=== PATIENT | female | born 1960 | race Caucasian/White ===

== ENCOUNTER 2024-07-07 16:29 | Outpatient (REF) | payer OTHER, SELFPAY ==
[2024-07-07 16:50] LABS: MANUAL DIFF FLAG NO
[2024-07-07 17:12] LABS: Basophils Percent Auto 0.4 % (0-2); Eosinophils Absolute Auto 0.2 X10*3/uL (0.0-0.4); Eosinophils Percent Auto 2.5 % (0-4); Hematocrit 35.9 % (37.0-47.0); Imm Gran Abs Auto 0.04 X10*3/uL (0.00-0.03); Imm Gran Pct Auto 0.6 % (0.0-0.4); Lymphocytes Absolute Auto 1.5 X10*3/uL (1.2-4.9); Lymphocytes Percent Auto 21.8 % (20-40); Mean Corpuscular HGB Conc 33.4 g/dl (31.0-35.0); Mean Corpuscular Hemoglobin 29.9 pg (27.0-33.0); Mean Corpuscular Volume 89.3 fL (80.0-98.0); Mean Platelet Volume 10.6 fL (9.4-12.3); Monocytes Absolute Auto 0.4 X10*3/uL (0.1-1.2); Monocytes Percent Auto 6.1 % (2-11); Neutrophils Absolute Auto 4.8 x10*3/uL (2.0-8.3); Neutrophils Percent Auto 68.6 % (45-73); Platelet Count 180 X10*3/uL (160-400); Red Blood Count 4.02 X10*6/uL (4.20-5.50); Red Cell Distribution Width 14.6 % (11.0-16.0); White Blood Count 6.9 X10*3/uL (4.8-10.8)
[2024-07-07 17:39] LABS: Alanine Aminotransferase 22 U/L (0-31); Albumin Level 4.1 g/dL (3.5-5.0); Alkaline Phosphatase 118 U/L (39-117); Anion Gap 16 (12-20); Aspartate Amino Transferase 24 U/L (5-31); Bilirubin Direct 0.1 mg/dL (0.0-0.5); Bilirubin Total 0.4 mg/dL (0.0-1.0); Blood Urea Nitrogen 21 mg/dL (9-16); Carbon Dioxide 24 mmol/L (22-29); Chloride 100 mmol/L (96-108); Estimated Glomerular Filt Rate 51; Glucose Random 85 mg/dL (60-115); Potassium 4.4 mmol/L (3.3-5.1); Sodium 136 mmol/L (135-145); Total Protein 6.9 g/dL (6.5-8.0)
[2024-07-07 18:17] LABS: TSH reflex Free T4 1.37 uIU/mL (0.32-4.0)
[2024-07-07 18:18] LABS: Folate 3.3 ng/mL (> or = 4.0); Vitamin B12 > 2000 pg/mL (200-900)
[2024-07-14 15:58] LABS: Vitamin B1 10 nmol/L (8-30)
== END 2024-07-07 16:30 | disposition home or self-care (01) ==
LOC: HO.LAB 16:29
PROVIDERS: PCP Internal Medicine; Visit Provider Psychiatry & Neurology Neurology
DX: G31.84 Mild cognitive impairment of uncertain or unknown etiology (principal)
CPT/HCPCS: 36415; 80053; 82248; 82607; 82746; 84425; 84443; 85025

== ENCOUNTER 2025-03-31 10:34 | Outpatient (REF) | payer OTHER, SELFPAY ==
[2025-03-31 12:00] LABS: MANUAL DIFF FLAG NO
[2025-03-31 12:10] LABS: Hematocrit 40.4 % (37.0-47.0); Hemoglobin 13.5 g/dl (12.0-16.0); Imm Gran Abs Auto 0.11 X10*3/uL (0.00-0.03); Imm Gran Pct Auto 1.4 % (0.0-0.4); Lymphocytes Absolute Auto 1.3 X10*3/uL (1.2-4.9); Mean Corpuscular HGB Conc 33.4 g/dl (31.0-35.0); Mean Corpuscular Hemoglobin 29.7 pg (27.0-33.0); Mean Corpuscular Volume 89.0 fL (80.0-98.0); NRBC Abs Auto 0.000 X10*3/uL (0.0-0.012); NRBC Pct Auto 0.0 /100WBC (0.0-0.2); Platelet Count 152 X10*3/uL (160-400); Red Blood Count 4.54 X10*6/uL (4.20-5.50); White Blood Count 7.9 X10*3/uL (4.8-10.8)
== END 2025-03-31 10:35 | disposition home or self-care (01) ==
LOC: HO.LAB 10:34
PROVIDERS: PCP Internal Medicine; Visit Provider Internal Medicine
DX: G47.33 Obstructive sleep apnea (adult) (pediatric) (principal); J45.909 Unspecified asthma, uncomplicated; E66.9 Obesity, unspecified; R05.9 Cough, unspecified; Z68.34 Body mass index [BMI] 34.0-34.9, adult; Z79.899 Other long term (current) drug therapy
CPT/HCPCS: 36415; 82785; 85025; 99202

== ENCOUNTER 2025-03-31 10:34 | Outpatient (AMB) | payer OTHER, SELFPAY ==
--- OUTSIDE RECORDS SUMMARY | 2025-01-24 07:30 | XMS_ITS ---
Author Organization [facility] Address [address] [place] [address] Care Team Providers Care Radiation / Chemistry Technician Name Role Phone David Mercado Primary Care Provider Kati Díaz [phone] Encounters Encounter Location Date Provider Diagnosis [address] [address] 01/24/2025 Kati Lawson Plan Of Treatment Next Appt Details Provider Name:Kati ramos, 06/13/2025 02:30:00 PM, [address] [place] [address], [phone], Progress Notes * Prisca PICKARDDOB: [birth year] (64 yo F)Acc No.[id number]:01/24/2025 Progress Note Patient: Prisca HUERTA Provider: González Lawson DPM :1960 A ge:64 Y S ex:Female Date:01/24/2025 Address:[address] [place], [place] [phone] Pcp:David Mercado Subjective: * Chief Complaints: * [...] 01/24/2025 Generated for Roslyn hannah/Marie/Chino on: 0 03/31/2025 11:42 AM EDT
[2025-03-31 11:06] VITALS: BP 102/82; PULSE 80; O2SAT 98; BMI 34.0
--- NOTE | 2025-03-31 11:06 | A.OFFVIS_ITS ---
Vital Signs 03/31/25 11:06 Height 5 ft 3 in Weight 191 lb 12.835 oz BMI 34.0 BP 102/82 Blood Pressure Location Lt brachial Position Sitting Pulse 80 Pulse Source Pulse Oximeter Pulse Oximetry (%) 98 Oxygen Delivery Method Room Air Intake Visit Reasons: Obstructive sleep apnea Intake Note: pt is here as a new patient for FAIZA/asthma. Last sleep study was about 8 years ago, she states she snores, asthma attack this am while taking a shower, but okay right now. Chief Environmental Commitment Officer Required: No Allergies Penicillins Allergy (Severe, Verified 03/31/25 12:59) Swelling Medication List - Last Reconciled 03/31/25 by Marilyn Drummond MD albuterol sulfate 90 mcg/actuation (Ventolin HFA) 1 inh inhalation QID fluticasone propionate 110 mcg/actuation 1 puff inhalation Q12H Do you need a note to return to daycare/school/sports/work: No HPI HPI Obstructive sleep apnea: Details: THIS 64 YEARS OLD FEMALE IS BEING SEEN FOR THE 1ST TIME FOR PULMONARY EVALUATION. AND MANAGEMENT SHE HAS VERY INTERESTING HISTORY DESCRIBED BELOW. SHE DOES HAVE HISTORY OF MILD BRONCHIAL ASTHMA FOR MANY YEARS, WHICH FLARES UP WITH SEASONAL ALLERGIES, OR ANY RESPIRATORY INFECTION, . BUT MOSTLY REMAINS UNDER CONTROL SHE HAS BEEN ON FLOVENT-1101 PUFF B.I.D., AND USES ALBUTEROL HFA ONLY ONCE IN A WHILE. SHE STATES THAT SHE IS HAVING MINOR EPISODES 2- 3 TIMES A DAY , AND SHE USES MOSTLY FLOVENT 1 PUFF TWICE A DAY, WHICH IS HELPING, SHE HAS HAD NO COMPLETE PULMONARY FUNCTION TESTING, OR ALLERGY TESTING. SHE ALSO HAS BEEN GROSSLY OBESE, HAS A ROUND FACE, AND WAS DIAGNOSED TO HAVE OBSTRUCTIVE SLEEP APNEA BACK IN 2016, WHEN SHE HAD A HOME-BASED STUDY THROUGH [facility]. SHE WAS PRESCRIBED CPAP WITH AUTO PAP MODE, BUT SHE DID NOT GO BACK FOR FOLLOW- UP. SHE STATES THAT SHE TRY TO USE THE CPAP ONLY FOR A LIMITED AMOUNT OF TIME, AND DID NOT TOLERATE THE MASK SO SHE GAVE UP. SUBSEQUENTLY IN 2018 SHE WAS ADMITTED TO THE SENIOR CARE, DUE TO SEVERE ENCEPHALOPATHY/DEMENTIA , AND SHE STAYED IN THE SENIOR CARE FOR 3 YEARS. SHE IS NOT SURE WHAT WAS THE REASON FOR THIS DEMENTIA, BUT SHE DOES STATE THAT SHE HAS HISTORY OF ALCOHOLISM IN THE PAST, WHICH SHE HAD STOPPED ALMOST 19 YEARS AGO. INTERESTINGLY WHEN SHE WAS STILL IN THE SENIOR CARE IN 2020 SHE HAD COVID INFECTION , AND ACCORDING TO HER STATEMENT AFTER THE COVID INFECTION HER MIND CLEARED UP. SHE BECAME VERY COHERENT ALERT AND ORIENTATED, AND STARTED AMBULATING. SHE WAS DEEMED FIT TO BE DISCHARGE FROM THE NURSING FACILITY. WHILE SHE WAS IN THE SENIOR CARE, HER HOME WAS TAKEN OVER BY THE BANK AND ALL HER STUFF INCLUDING THE CPAP MACHINE WERE GIVEN AWAY. AFTER DISCHARGE FROM THE SENIOR CARE SHE HAS BEEN LIVING IN AN ASSISTED LIVING FACILITY, WHICH SHE HAS BEEN STABLE AND DOING WELL. SHE STATES THAT SHE IS SLEEPING OKAY, AND SHE DOES NOT THINK THAT SHE NEEDS THE CPAP. IT SHOULD BE NOTED THAT WHEN SHE HAD SLEEP STUDY IN 2017 SHE WEIGHED 232 LBS, NOW HER WEIGHT BEING 191 LB SHE HAS LOST 41 LBs . THIS MAY HAVE DECREASE THE SEVERITY OF HER SLEEP APNEA. SHE HAS HISTORY OF SMOKING IN THE REMOTE PAST AND WAS ABLE TO QUIT SMOKING 30 YEARS AGO. MINIMAL INTERMITTENT COUGH AND MINIMAL SHORTNESS OF BREATH ON EXERTION SEEMS TO BE RELATED TO HER OBESITY AND MILD BRONCHIAL ASTHMA. [facility] Medical History (Updated 03/31/25 @ 15:20 by Marilyn Drummond MD) Obesity (BMI 30-39.9) FAIZA (obstructive sleep apnea) Cough Allergic asthma Asthma Social History Patient Tobacco Use Status: Former Tobacco user Review of Systems Const All systems reviewed & are unremarkable except as noted in HPI and below Eyes Reports no additional complaints ENT Reports no additional complaints and Reports nasal congestion (ONLY MILD INTERMITTENT NASAL CONGESTION) Card Denies chest pain, Denies syncope, Denies irregular heart rhythm and Denies leg edema Resp Reports as per HPI GI Reports no additional complaints Reports no additional complaints Musc Reports no additional complaints Skin/Breast Reports system reviewed and no additional complaints, except as documented Neuro Reports no additional complaints, Denies confusion, Denies syncope and Denies memory loss (SHE SPENT 3 YEARS IN THE SENIOR CARE BECAUSE OF SEVERE DEMENTIA) Psych Reports no additional complaints, Denies confusion and Denies memory loss (SHE SPENT 3 YEARS IN THE SENIOR CARE BECAUSE OF SEVERE DEMENTIA) Endo Reports no additional complaints Aller/Immun Reports no additional complaints Physical Exam Vital Signs: Last Vital Signs Pulse 80 03/31/25 11:06 BP 102/82 03/31/25 11:06 Pulse Ox 98 03/31/25 11:06 Oxygen Delivery Method Room Air 03/31/25 11:06 BMI result Body Mass Index 34.0 SHE IS MODERATELY OBESE, SHE DOES HAVE ROUND FACE, WEARS DENTURES. BUT THERE IS NO SIGNIFICANT WALTER DENTAL DEFORMITY . Const General: No confusion Orientation/consciousness: patient oriented x3 and No confusion HEENT Head: Yes normal to inspection General nose exam: No nasal polyps present and No nasal discharge present Face and sinus: Yes sinuses nontender Mouth: oropharynx normal (SLIGHTLY NARROW, MALLAMPATI CLASS 3) Throat: Yes posterior oropharynx normal Eyes General: appearance normal, both eyes and all related structures Neck Neck: Yes normal visual inspection, Yes no lymphadenopathy, Yes trachea midline and Yes no JVD Thyroid: Thyroid normal Chest Chest palpation & inspection: normal inspection of the chest, normal palpation of entire chest wall and no tenderness Resp Effort & Inspection: normal respiratory effort Auscultation: clear to auscultation bilaterally, no crackles, no rhonchi and no wheezes Cardio Palpation: normal PMI Rate: regular rate Rhythm: regular rhythm Heart sounds: no gallops and no murmurs Peripheral pulses: Peripheral pulses 2+ throughout GI Palpation (GI): Soft to palpation, Tenderness to palpation present (GI), No hepatosplenomegaly present and Palpable mass present Auscultation: normal bowel sounds Back/Spine/Pelvis Thoracic/Lumbar Spine: thoracic and lumbar spine normal to inspection Skin General skin exam: no rashes or lesions noted Neuro General: patient oriented x3, gait normal and No confusion Cranial nerves: Yes CN's II-XII intact bilaterally Extrem General: Yes normal to inspection, Yes no clubbing, cyanosis or edema and Yes no calf tenderness Psych Appearance: grossly normal and well kempt Speech and movement: Normal speech and movement present Results Reviewed Results Reviewed: HOME-BASED SLEEP STUDY BACK IN 2017 PERFORMED AT [facility], IS REVIEWED SHE DID HAVE MODERATELY SEVERE OBSTRUCTIVE SLEEP APNEA WITH TOTAL SLEEP TIME AHI 19.5. SHE WAS STARTED ON CPAP THERAPY WITH AUTO PAP MODE, BUT SHE REMAINED TOTALLY NON COMPLIANT. Assessment & Plan Assessment & Plan (1) FAIZA (obstructive sleep apnea): Comment: THIS PATIENT DOES HAVE HISTORY OF OBSTRUCTIVE SLEEP APNEA DIAGNOSED, BACK IN 2017. WAS PRESCRIBED CPAP THERAPY BUT SHE REMAINED TOTALLY NON COMPLIANT. SINCE THEN SHE HAS LOST SOME WEIGHT. AT PRESENT SHE DOES NOT PRESENT WITH SIGNIFICANT SYMPTOMS SUGGESTIVE OF SLEEP APNEA. Code(s): G47.33 - Obstructive sleep apnea (adult) (pediatric) Category: Medical Plan: WITH THIS INFORMATION THAT SHE WAS NONCOMPLIANT, AND ALSO WITH THE EVIDENCE THAT SHE HAS LOST SIGNIFICANT WEIGHT, AND PROBABLY WOULD HAVE ONLY MILD IF AT ALL, SLEEP APNEA. I DO NOT THINK THAT WE SHOULD REPEAT A SLEEP STUDY AT THIS TIME. THE PATIENT TOLD ME THAT EVEN IF SHE DOES HAVE SLEEP APNEA SHE IS NOT GOING TO USE THE CPAP. I RECOMMEND THAT SHE SHOULD CONTINUE TO LOSE SOME WEIGHT. TRY TO SLEEP IN LATERAL POSITION. (2) Obesity (BMI 30-39.9): Comment: PATIENT IS THE MODERATELY OBESE, SHE DOES HAVE A ROUND FACE. BUT THERE HAS BEEN EVIDENCE OF SOME WEIGHT LOSS COMPARED TO 2017 . Code(s): E66.9 - Obesity, unspecified Category: Medical Plan: DISCUSSED WITH THE PATIENT AND I RECOMMENDED TO HER THAT SHE NEEDS TO, CONTINUE LOSING WEIGHT (3) Allergic asthma: Comment: SHE HAS CHRONIC PERIODIC COUGH AND WHEEZING. I THINK SHE HAS CHRONIC ALLERGIC BRONCHIAL ASTHMA, DUE TO NONSPECIFIC MULTIPLE TRIGORS . Code(s): J45.909 - Unspecified asthma, uncomplicated Category: Medical Plan: CBC WITH DIFF, IGE LEVEL, ORDERED . ADVISED TO USE ALBUTEROL HFA 2 PUFFS Q 4-6 HOURS P.R.N. IF SHE HAS ANY SUSTAINED BOUT OF COUGH OR WHEEZING. ALSO CONTINUE FLUTICASONE PROPIONATE-110 1 PUFF B.I.D. PATIENT IS SCHEDULED TO HAVE COMPLETE PULMONARY FUNCTION TEST, AND AFTER THE TEST WILL DECIDE IF WE NEED TO MODIFY HER TREATMENT REGIMEN. (4) Cough: Comment: MILD INTERMITTENT COUGH IS PROBABLY ASTHMA VARIANT. Code(s): R05.9 - Cough, unspecified Category: Medical Plan: SEE UNDER BRONCHIAL ASTHMA CHEST X-RAY IS ORDERED TO RULE OUT ANY PARENCHYMAL DISEASE Orders: Orders Immunoglobulin E Today J45.909 - Unspecified asthma, uncomplicated Complete Blood Count Auto Diff Today J45.909 - Unspecified asthma, uncomplicated XR chest 2V Today J45.909 - Unspecified asthma, uncomplicated, R05.9 - Cough, unspecified PFT pulmonary function test Today E66.9 - Obesity, unspecified, J45.909 - Unspecified asthma, uncomplicated, R05.9 - Cough, unspecified Coding Level of Care Code New Pt Level 4 (92961) Diagnoses FAIZA (obstructive sleep apnea) G47.33 Obesity (BMI 30-39.9) E66.9 Allergic asthma J45.909 Cough R05.9
--- OUTSIDE RECORDS SUMMARY | 2025-03-31 11:42 | XMS_ITS | Encounter Summary ---
Author Organization [facility] Address [address] [place] [address] Care Team Providers Care Casino Slot Supervisor Name Role Phone David Mercado MD Primary Care Provider [phone] Reason for Visit * Reason Onset Date Comments Medication Problem 03/18/2025 Encounter Details Date Type Department Care Team (Late st Contact Info) Description 03/18/2025 Telephone Internal Medicine - [place] [address] [place] [phone] David Mercado MD 175 [facility] [address] [place] [address] Medication Problem Social History Tobacco Use Types Packs/Day Years Used Date Smoking Tobacco: Former Cigarettes Q uit: 08/18/1994 Smokeless Tobacco: Never Alcohol Use Standard Drinks/Week Comments Not Currently 0 (1 standard drink = 0.6 oz pur e alcohol) Comments No Sex and Gender Information Value Date Recorded Sex Assigned at Female 08/23/2024 7:27 AM EST Legal Sex Female 8:56 PM EST Gender Identity Female 08/23/2024 7:27 AM EST Sexual Orientation Straight 08/23/2024 7: 27 AM EST documented as of this encounter Progress Notes * Esperanza Alba - 03/30/2025 12:30 PM EDT Completed electronic pa - the medication did on the med list as of 03/27/2025. * Tatiaan Simmons - 03/28/2025 12:01 PM EDT Still waiting on medication and prior auth * Katherine Telles - 03/23/2025 11:54 AM EDT Maharaj from [facility] sent PA request over [employer] portal on 03/18/25: KeyCODE : [id number] [phone] EXT. 210 * Tatiana Simmons - 03/21/2025 10:33 AM EDT Mucienx needs a prior auth Tessalon also not covered by insurance Continue with cough persistent. OTC medication - no value to her . Unable to sleep -Heaviness in chest -- Continues with dyspnea even at rest Hydrating - Request is for ANETTE attention due to her Cough - and medications all need prior auth * Carrillo Serrano MA - 03/18/2025 3:39 PM EDT Informed pt Rx was sent over yesterday * Justin Pittman NP - 03/18/2025 3:17 PM EDT I sent Mucinex yesterday. Did the pharmacy notify her? * Carrillo Serrano MA - 03/18/2025 2:41 PM EDT Could you send over alternative for benzonatate cough med insurance doesn't cover it thank you * Katherine Elfego - 03/18/2025 2:26 PM EDT Pt needs an alternative for benzonatate cough med insurance doesn't cover, asked to send for high priority having a hard time with cough Please advise, ty documented in this encounter Plan of Treatment Upcoming Encounters Date Type Department Care Team (Late st Contact Info) Description 04/04/2025 9:00 AM EDT Office Visit Internal Medicine - [place] [address] [place] [phone] Justin Pittman NP 175 [facility] [address] [place] [address] 04/06/2025 2:00 PM EDT Office Visit Orthopedic Surgery - [place] [address] [facility] [address] [place] [phone] Italo Gordon MD 175 [facility] [address] [place] [address] 05/25/2025 9:10 AM EDT Office Visit Gastroenterology - [address] [place] [address] Enrique Yeh PA 299 [facility] [address] [place] [address] 07/26/2025 10:00 AM EST Office Visit Internal Medicine - [place] [address] [phone] David Mercado MD 175 [facility] [address] [place] [address] 12/27/2025 1:00 PM EDT [facility] [address] [facility] [place] [address] Adonis Ellison MD [address] [facility] [address] [place] [address] documented as of this encounter Goals Goal Patient Goal Type Associated Problems Recent Progress Patient-Stated? Author PT LTG - 4 visits General No Kaia [place] PT Note: Patient reports subjective decrease in right shoulder pain Patient is able to achieve 160 degrees of R shoulder flexion and abduction Slight trigger point to right upper trap and levator scap Slight flexibility restriction to bilateral upper trap Patient is independent and compliant with HEP documented as of this encounter Visit Diagnoses Not on filedocumented in this encounter Care Teams Casino Slot Supervisor Relationship Specialty Start Date End Date David Mercado MD 175 [facility] [address] [place] [address] PCP - General 05/21/23 documented as of this encounter
--- OUTSIDE RECORDS SUMMARY | 2025-03-31 11:42 | XMS_ITS ---
Author Name [facility] Organization Unknown History of Medication Use Medication Directions Dispensed Refills Start Date End Date Stat us acetaminophen (TYLENOL) 325 mg tablet Take 2 tablets (650 mg total) by mouth every 6 (six) hours if needed (postoperative pain). 08/23/2024 active levothyroxine (SYNTHROID, LEVOTHROID) 50 mcg tablet Take 1 tablet (50 mcg total) by mouth 1 (one) time each day before breakfast. Take 1 Tablet by mouth daily for 360 days. Take it in emty stomach in the morning , no medicine or food or drink within 30 min 07/08/2024 active risperiDONE (RisperDAL) 0.5 mg tablet Take 1 Tablet by mouth 2 times daily. 05/03/2024 active buPROPion (WELLBUTRIN) 100 mg tablet Take 1 Tablet by mouth 2 times daily. 03/09/2024 active aspirin 81 mg EC tablet Take 1 Tablet by mouth daily. active Allergies Allergen Reaction Severity Comment Documented Date Source Statu s PENICILLINS ANAPHYLAXIS 08/26/2023 [facility] ac tive Problems Problem Status Onset Date Problem Type Date of Resolution Source Abnormal EKG active 2024-07-02 ProblemAct [facility] Encounter for screening mammogram for breast cancer active EncounterDiagnosisAct C [facility] Gastroesophageal reflux disease active 2023-08-26 ProblemAct [facility] Bipolar 1 disorder active 2023-08-26 ProblemAct [facility] Vitamin D deficiency active 2023-09-14 ProblemAct [facility] Anxiety active 2023-08-26 ProblemAct [facility] Sleep apnea active 2024-08-23 ProblemAct [facility] Asthma active 2024-08-23 ProblemAct [facility] Depression active 2023-08-26 ProblemAct [facility] Hypotension active 2023-08-26 ProblemAct [facility] Vitamin B12 deficiency active 2023-09-14 ProblemAct [facility] Mixed hyperlipidemia active 2023-08-26 ProblemAct [facility] Obesity (BMI 30-39.9) active 2023-08-26 ProblemAct [facility] Allergic rhinitis due to pollen active 2023-08-26 ProblemAct [facility] Anemia active 2023-09-14 ProblemAct [facility] Hypomagnesemia active 2023-08-26 ProblemAct [facility]_ [facility] HTN (hypertension) active 2024-08-23 ProblemAct [facility] Pre-syncope active 2024-07-02 ProblemAct [facility] Stage 3a chronic kidney disease active 2023-11-05 ProblemAct [facility]
== END 2025-03-31 11:40 | disposition home or self-care (01) ==
LOC: HO.HPS 10:36
PROVIDERS: PCP Internal Medicine; Visit Provider Internal Medicine
DX: G47.33 Obstructive sleep apnea (adult) (pediatric) (principal); E66.9 Obesity, unspecified; J45.909 Unspecified asthma, uncomplicated; R05.9 Cough, unspecified
CPT/HCPCS: 99204

== ENCOUNTER 2025-04-05 09:31 | Outpatient (REF) | payer OTHER, SELFPAY ==
--- OUTSIDE RECORDS SUMMARY | 2025-01-24 07:30 | XMS_ITS ---
Author Organization [facility] Address [address] [place] [address] Care Team Providers Care Animal Care Taker Name Role Phone David Mercado Primary Care Provider Kati Díaz [phone] Encounters Encounter Location Date Provider Diagnosis [address] [address] 01/24/2025 Kati Lawson Plan Of Treatment Next Appt Details Provider Name:Kati ramos, 06/13/2025 02:30:00 PM, [address] [place] [address], [address], Progress Notes * Prisca PICKARDDOB: [birth year] (64 yo F)Acc No.[id number]:01/24/2025 Progress Note Patient: Prisca HUERTA Provider: González Lawson DPM :1960 A ge:64 Y S ex:Female Date:01/24/2025 Address:[address] [place], [place] [phone] Pcp:David Mercado Subjective: * Chief Complaints: * [...] DPM Date: 0 01/24/2025 Generated for Roslyn hannah/Marie/Chino on: 0 04/05/2025 10:36 AM EDT
--- NOTE | ~2025-04-05 | XR_ITS ---
EXAMINATION: XR CHEST CLINICAL INFORMATION: J45.909 - Unspecified asthma, uncomplicated COMPARISON: None available. TECHNIQUE: 2 views of the chest were obtained. FINDINGS: The cardiac, hilar, and mediastinal contours are normal. The lungs are clear bilaterally. There is no pneumothorax or pleural effusion. There is no focal osseous or soft tissue abnormality. There are cholecystectomy clips present. XR/XR chest 2V IMPRESSION: No active pulmonary disease. Electronically signed by: John Ozuna MD 04/05/2025 09:51 AM EDT
--- OUTSIDE RECORDS SUMMARY | 2025-04-05 10:36 | XMS_ITS | Encounter Summary ---
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 Phone David Mercado MD Primary Care Provider [phone] Reason for Visit * Reason Onset Date Comments Medication Problem 03/18/2025 Encounter Details Date Type Department Care Team (Late st Contact Info) Description 03/18/2025 Telephone Internal Medicine - [place] [facility] [address] [place] [id number] David Mercado MD 175 [facility] [address] [place] [address] Medication Problem Social History Tobacco Use Types [...] as of this encounter Progress Notes * Sangita Wylie MA - 04/02/2025 1:24 PM EDT DEXTROMETHOPHAN Is medication still an active medication ? * Tatiana Simmons - 03/31/2025 2:16 PM EDT If pharmacy request is this med discontinued? DEXTROMETHOPHAN is the name of medication Contact pharmacy with response * Espreanza Alba - 03/30/2025 12:30 PM EDT Completed electronic pa - the medication did on the med list as of 03/27/2025. * Tatiana Simmons - 03/28/2025 12:01 PM EDT Still waiting on medication and prior auth * Katherine Telles - 03/23/2025 11:54 AM EDT Maharaj from [facility] sent PA request over [employer] portal on 03/18/25: KeyCODE : [id number] [phone] EXT. 210 * Tatiana Simmons - 03/21/2025 [...] send over alternative for benzonatate cough med bc insurance doesn't cover it thank you * Katherine Telles - 03/18/2025 2:26 PM EDT Pt needs an alternative for benzonatate cough med bc insurance doesn't cover, asked to send for high priority having a hard time with cough Please advise, ty documented in this encounter Plan of Treatment Upcoming Encounters Date Type Department Care Team (Late st Contact Info) Description 04/06/2025 2:00 PM EDT Office Visit Orthopedic Surgery - [place] [address] [facility] [address] [place] [phone] Italo Gordon MD 175 [facility] [address] [place] [address] 05/25/2025 9:10 AM EDT Office Visit Gastroenterology - [address] [place] [phone] Enrique Yeh PA [address] [facility] [address] [place] [address] 07/26/2025 10:00 AM EST Office Visit Internal Medicine - [place] [address] [facility] [address] [place] [phone] David Mercado MD 175 [facility] [address] [place] [address] 12/27/2025 1:00 PM EDT Office Visit [place]phrology - [place] [address] [place] [phone] Adonis Ellison MD [address] [facility] [address] [place] [address] documented as of this encounter Goals Goal [...] on filedocumented in this encounter 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
== END 2025-04-05 09:32 | disposition home or self-care (01) ==
LOC: HO.XRAY 09:31
PROVIDERS: PCP Student in an Organized Health Care Education/Training Program; Visit Provider Internal Medicine
DX: J45.909 Unspecified asthma, uncomplicated (principal); R05.9 Cough, unspecified
CPT/HCPCS: 71046

== ENCOUNTER → 2025-04-05 09:36 | Outpatient (BNV) | payer OTHER, SELFPAY | PROVIDERS: PCP Student in an Organized Health Care Education/Training Program; Visit Provider Radiology Diagnostic Radiology | DX: J45.909 Unspecified asthma, uncomplicated (principal) | CPT/HCPCS: 71046 ==

== ENCOUNTER 2025-04-14 06:57 | Outpatient (REF) | payer OTHER, SELFPAY ==
--- OUTSIDE RECORDS SUMMARY | 2025-01-24 07:30 | XMS_ITS ---
Author Organization [facility] Address [address] [place] [address] Care Team Providers Care Car Inspector Name Role Phone David Mercado Primary Care Provider Kati Díaz [phone] Encounters Encounter Location Date Provider Diagnosis [address] [address] 01/24/2025 Kati Lawson Plan Of Treatment Next Appt Details Provider Name:Kati ramos, 06/13/2025 02:30:00 PM, [address] [place] [address], [phone], Progress Notes * Prisca PICKARDDOB: [birth year] (64 yo F)Acc No.[id number]:01/24/2025 Progress Note Patient: Prisca HUERTA Provider: González Lawson DPM :1960 A ge:64 Y S ex:Female Date:01/24/2025 Address:[address] [place], [place] [phone] Pcp:David Mercado Subjective: * Chief Complaints: * [...] 01/24/2025 Generated for Roslyn hannah/Marie/Chino on: 0 04/14/2025 06:59 AM EDT
--- OUTSIDE RECORDS SUMMARY | 2025-04-14 06:59 | XMS_ITS | Clinical Summary ---
Author Organization [facility] [address] [place] [address] Address [address], [place] Phone Care Team Providers Care Filler Shredding Machine Loader Name Role Phone David Mercado MD Primary Care Provider [phone] Allergies Active Allergy Reactions Criticality Noted Date Comments Penicillins Anaphylaxis High 08/26/2023 Medications levothyroxine (SYNTHROID, LEVOTHROID) 50 mcg tablet Take 1 tablet (50 mcg total) by mouth 1 (one) time each day before breakfast. Take 1 Tablet by mouth daily for 360 days. Take it in emty stomach in the morning , no medicine or food or drink within 30 min 90 each 3 09/28/19 25 026 Active FLUoxetine (PROzac) 10 mg capsule Take 1 capsule (10 mg total) by mouth 1 (one) time each day. Active diclofenac (VOLTAREN) 1 % topical gel Apply 2 g topically 4 (four) times a day if needed (pain). 100 g 3 02/02/20 25 025 Active pantoprazole (PROTONIX) 40 mg EC tablet Take 1 tablet (40 mg total) by mouth 1 (one) time each day. Do not crush, chew, or split. 90 each 1 02/08/20 25 025 Active atorvastatin (LIPITOR) 80 mg tablet Take 1 tablet (80 mg total) by mouth 1 (one) time each day. 60 tablet 1 02/22/20 25 026 Active lamoTRIgine (LaMICtal) 25 mg tablet Take 1 tablet (25 mg total) by mouth 1 (one) time each day. 90 each 1 02/22/20 25 026 Active midodrine (PROAMATINE) 5 mg tablet Take 1 tablet (5 mg total) by mouth 3 (three) times a day if needed (if BP <110/70). 120 tablet 1 02/22/20 25 026 Active albuterol HFA (PROAIR HFA ; PROVENTIL HFA ; VENTOLIN HFA) 90 mcg/actuation inhaler Inhale 2 puffs by mouth every 4 (four) hours if needed for wheezing. 6.7 g 3 03/08/20 25 Active benzonatate (TESSALON) 100 mg capsuleIndicatio ns:Cough, unspecified type Take 1 capsule (100 mg total) by mouth 3 (three) times a day if needed for cough. Do not crush or chew. 42 capsule 1 03/16/20 25 Active fluticasone HFA (FLOVENT HFA) 110 mcg/actuation inhalerIndicatio ns:Moderate persistent asthma, unspecified whether complicated,Bron chitis Inhale 1 puff by mouth 2 (two) times a day. Rinse mouth with water after use to reduce aftertaste and incidence of candidiasis. Do not swallow. 12 g 5 03/17/20 25 026 Active aspirin 81 mg chewable tablet CHEW ONE TABLET BY MOUTH ONCE DAILY. 30 tablet 04/07/20 25 Active celecoxib (CeleBREX) 200 mg capsule TAKE (1) CAPSULE BY MOUTH DAILY 30 capsule 04/07/20 25 Active buPROPion (WELLBUTRIN) 100 mg tablet TAKE 1 TABLET BY MOUTH TWICE DAILY 60 tablet 04/07/20 25 Active risperiDONE (RisperDAL) 0.5 mg tablet TAKE 1 TABLET BY MOUTH TWICE DAILY 60 tablet 04/07/20 25 Active aspirin 81 mg chewable tablet CHEW ONE TABLET BY MOUTH ONCE DAILY. 30 tablet 03/14/20 25 025 Discontinued celecoxib (CeleBREX) 200 mg capsule TAKE (1) CAPSULE BY MOUTH DAILY 30 capsule 03/14/20 25 025 Discontinued buPROPion (WELLBUTRIN) 100 mg tablet TAKE 1 TABLET BY MOUTH TWICE DAILY 60 tablet 03/14/20 25 025 Discontinued risperiDONE (RisperDAL) 0.5 mg tablet TAKE 1 TABLET BY MOUTH TWICE DAILY 60 tablet 03/14/20 25 025 Discontinued predniSONE (DELTASONE) 20 mg tabletIndication s:Bronchitis Take 3 tabs (60mg) daily for 3 days, then take 2 tabs (40mg) daily for 3 days, then take 1 tab (20mg) daily for 3 days. 18 tablet 03/16/20 25 025 budesonide-formo teroL (SYMBICORT) 160-4.5 mcg/actuation inhalerIndicatio ns:Mild intermittent asthma, unspecified whether complicated Inhale 2 puffs by mouth 2 (two) times a day. Rinse mouth with water after use to reduce aftertaste and incidence of candidiasis. Do not swallow. 1 each 03/16/20 25 025 Discontinued dextromethorphan -guaiFENesin (MUCINEX DM) 30-600 mg per 12 hr tabletIndication s:Moderate persistent asthma, unspecified whether complicated,Bron chitis,Acute cough Take 1 tablet by mouth every 12 (twelve) hours if needed for cough for up to 10 days. Do not crush, chew, or split. 20 tablet 03/17/20 25 025 Active Problems Problem Noted Date Diagnosed Date Dementia ([facility] V24, [facility] V28) 09/23/2024 Sciatica 09/23/2024 Asthma 08/23/2024 Sleep apnea 08/23/2024 Dysautonomia ([facility] V24, [facility] V28) 07/02/20 24 Assessment & Plan (09/29/2024 1:26 PM EST): Her symptoms are likely indicative of of an underlying dysautonomia, a common cause of syncope. Initially, it seemed as though the symptoms came out of the blue but with further questioning, she has had issues such as this for many years and in fact has been on midodrine for it. Furthermore, she also struggles with other autonomic issues including bladder issues for which she has a neurostimulator. I suspect memory loss is at play with some of this. EKG results are within normal limits. Currently on midodrine for low blood pressure. - Avoid squats and similar exercises that could potentially lead to falls - Maintain core and leg strength through alternative exercises that can be performed on the back-I suggested she speak with the teacher of the classes that she goes to at her assisted living who could make some recommendations - Continue high water intake - Order echocardiogram and carotid ultrasound and further workup - I have ordered a CBC to rule out anemia as a potential cause or contributor, TSH recently was normal - Use compression stockings to aid in blood return to the heart - Recommended she communicate with Dr. Gupta to discuss the case-she may have an underlying neurologic condition such as multisystem atrophy/Parkinson's-she does not have or complain of features of Parkinson's of note - Consider increasing midodrine dosage if symptoms persist Orders: Vascular US duplex carotid bilateral; Future Transthoracic echocardiogram (TTE) complete with PRN contrast, bubble, strain, and 3D order panel; Future CBC and differential; Future Assessment & Plan (09/29/2024 1:10 PM EST): Her symptoms are likely indicative of of an underlying dysautonomia, a common cause of syncope. Initially, it seemed as though the symptoms came out of the blue but with further questioning, she has had issues such as this for many years and in fact has been on midodrine for it. I suspect memory loss is at play with some of this. EKG results are within normal limits. Currently on midodrine for low blood pressure. - Avoid squats and similar exercises that could potentially lead to falls - Maintain core and leg strength through alternative exercises that can be performed on the back-I suggested she speak with the teacher of the classes that she goes to at her assisted living who could make some recommendations - Continue high water intake - Order echocardiogram and ultrasound of the neck - I have ordered a CBC to rule out anemia as a potential cause or contributor, TSH recently was normal - Use compression stockings to aid in blood return to the heart - Recommended she communicate with Dr. Gupta to discuss the case - Consider increasing midodrine dosage if symptoms persist Abnormal EKG 07/02/2024 Assessment & Plan (09/29/2024 1:26 PM EST): No major issues seen on today's EKG but obtaining baseline echocardiogram Orders: ECG 12 lead Stage 3a chronic kidney disease ([facility] V24, [facility] V28) 11/05/2023 Anemia 09/14/2023 Vitamin B12 deficiency 09/14/2023 Vitamin D deficiency 09/14/2023 Allergic rhinitis due to pollen 08/26/2023 Anxiety 08/26/2023 Bipolar 1 disorder ([facility] V24, [facility] V28) Depression 08/26/2023 Gastroesophageal reflux disease 08/26/2023 Hypomagnesemia 08/26/2023 Mixed hyperlipidemia 08/26/2023 Assessment & Plan (09/29/2024 1:26 PM EST): Continue current atorvastatin Obesity (BMI 30-39.9) 08/26/2023 Resolved Problems Problem Noted Date Diagnosed Date Resolved Date Paroxysmal atrial fibrillati on ([facility] V24, [facility] V28) 09/23/2024 09/29/2024 HTN (hypertension) 08/23/2024 Hypotension 08/26/2023 09/29/2024 Encounters Date Type Department Care Team Description 04/06/2025 2:00 PM EDT Office Visit Orthopedic Surgery - [place] [address] [facility] [address] [place] [phone] Italo Gordon MD Calcific tendinitis of right shoulder (Primary Dx) 03/18/2025 9:41 AM EDT - 03/18/2025 11:59 PM EDT Hospital Encounter Radiology Department [address] [phone] Encounter for screening mammogram for breast cancer Discharge Disposition: Home or Self Care 03/18/2025 Telephone Internal Medicine [facility] [address] [facility] [address] [place] [address] David Mercado MD 03/17/2025 Telephone Internal Medicine [facility] [address] [facility] [address] [place] [address] David Mercado MD 03/16/2025 9:30 AM EDT Office Visit Internal Medicine [address] [place] [phone] Justin Pittman NP Bronchitis (Primary Dx); Cough, unspecified type; Mild intermittent asthma, unspecified whether complicated; Bipolar 1 disorder ([facility] V24, [facility] V28) 01/25/2025 8:30 AM EDT Evaluation [facility] - [place] [address] [facility] [address] [place] [phone] Kaia Mesa PT Calcific tendinitis of right shoulder 01/19/2025 10:30 AM EDT Office Visit Internal Medicine - [place] [address] [facility] [address] [place] [phone] David Mercado MD Encounter for medication review (Primary Dx); Hypomagnesemia; Mixed hyperlipidemia; Vitamin B12 deficiency; Hypotension, unspecified hypotension type from Last 3 Months Surgical History Surgery Date Site/Laterality Comments KNEE SURGERY 2017 Right PROCEDURE: HISTORICAL KNEE SURGERY HIP ARTHROPLASTY 2019 Right PROCEDURE: HISTORICAL HIP REPLACEMENT OTHER SURGICAL HISTORY 2022 N/A PROCEDURE: REMOVAL OF NOSE/THROAT LESION; COMMENT: repartment of nose CHOLECYSTECTOMY 1982 N/A PROCEDURE: HISTORICAL CHOLECYSTECTOMY SECTION PROCEDURE: [place] DELIVERY ONLY OTHER SURGICAL HISTORY PROCEDURE: [place] LIG/TRNSXJ FLP TUBE ABDL/VAG APPR UNI/BI REVISION / REMOVAL NEUROSTIMULATOR Medical History Medical History Date Comments Hypotension 08/26/2023 DX:Hypotension Hypomagnesemia 08/26/2023 DX:Hypomagnesemi a Mixed hyperlipidemia 08/26/2023 DX:Mixed hy perlipidemia Obesity (BMI 30-39.9) 08/26/2023 DX:Obesity (BMI 30-39.9) Gastroesophageal reflux disease 08/26/2023 DX:Gastroesophageal reflux disease Bipolar 1 disorder ([facility] V24, [facility] V28) 08/26/2023 DX:Bipolar 1 disorder (HCC) Depression 08/26/2023 DX:Depression Anxiety 08/26/2023 DX:Anxiety Allergic rhinitis due to pollen 08/26/2023 DX:Allergic rhinitis due to pollen TIA (transient ischemic attack) DX:TIA (transient ischemic attack); COMMENT: Reports possible history of TIA when she was at shelter Kidney stones DX:Kidney stones Asthma Hypothyroidism Stroke ([facility] V24, [facility] V28) Family History Medical History Relation Name Comments Other: retinal problem Brother COPD Father Heart attack Mother Other: heart dis Mother Breast cancer Paternal Grandmother dx'd e rajeev 50s Glaucoma Sister Relation Name Status Comments Brother Father Maternal Grandfather Maternal Grandmother Mother Paternal Grandfather Paternal Grandmother Sister Social History Tobacco Use Types Packs/Day Years Used Date Smoking Tobacco: Former Cigarettes Q uit: 08/18/1994 Smokeless Tobacco: Never Tobacco Cessation:Counseling Given: Not Answered Alcohol Use Standard Drinks/Week Comments Not Currently 0 (1 standard drink = 0.6 oz pur e alcohol) Comments No Sex and Gender Information Value Date Recorded Sex Assigned at Female 08/23/2024 7:27 AM EST Legal Sex Female 8:56 PM EST Gender Identity Female 08/23/2024 7:27 AM EST Sexual Orientation Straight 08/23/2024 7: 27 AM EST Obstetrics History Para Term AB IAB SAB Ectopic Multiple Livin g Live Births 6 6 6 6 Date Outcome GA Total Labor Labor/2nd/3rd Weight Sex Type Anes PTL Jazmín A1 A5 Name Clin Term Term Term Term Term Term Last Filed Vital Signs Vital Sign Reading Time Taken Comments Blood Pressure 114/54 03/16/2025 9:16 AM EDT Pulse 110 03/16/2025 9:16 AM EDT Temperature 36.3 C (97.3 F) 03/16/2025 9:16 AM EDT Respiratory Rate 14 12/29/2024 10:39 AM EDT Oxygen Saturation 98% 03/16/2025 9:16 AM EDT Inhaled Oxygen Concentration - - Weight 81.6 kg (180 lb) 04/06/2025 2:01 PM EDT Height 160 cm (5' 3 ) 04/06/2025 2:01 PM EDT Body Mass Index 31.89 04/06/2025 2:01 PM EDT Plan of Treatment Upcoming Encounters Date Type Department Care Team (Late st Contact Info) Description 05/25/2025 9:10 AM EDT Office Visit Gastroenterology - [address] [facility] [address] [place] [phone] Enrique Yeh PA [address] [place] [phone] 07/26/2025 10:00 AM EST Office Visit Internal Medicine - [place] [address] [place] [phone] David Mercado MD [address] [place] [address] 12/27/2025 1:00 PM EDT [facility] [address] [place] [phone] Adonis Ellison MD [address] [place] [phone] Health Maintenance Due Date Last Done Comments Hepatitis A Vaccines (1 of 2 - Risk 2-dose series) 1979 Pneumococcal Vaccine: 50+ Years (1 of 2 - PCV) 1979 Zoster Vaccines (1 of 2) 1979 RSV Immunization Adult Patients (1 - Risk 60-74 years 1-dose series) 2020 Colorectal Cancer Screening: Colonoscopy 09/12/2023 HIV Screening 09/12/2023 Medicare Annual Wellness Visit 09/12/2023 Social Influencers of Health Screening 09/12/2023 COVID-19 Vaccine (2 - Moderna risk series) 06/14/2024 05/17/2024 Depression Screening 08/18/2024 Hypertension/CHF/CAD Annual BMP Blood Test 03/09/2025 03/09/2024, 03/09/2024 Influenza Vaccine (#1) 2025 , 06/18/2018, 05/23/2017, Additional history exists Breast Cancer Screening 03/18/2027 03/18/20, 03/10/2024, 03/10/2024 DTaP,Tdap,and Td Vaccines (3 - Td or Tdap) 10/13/2027 10/13/2017, 08/18/2007 Cervical Cancer Screening: HPV 11/05/2028 11/06/2023 Cholesterol Screening (Lipid Panel) 03/09/2029 03/09/2024, 03/09/2024 Osteoporosis Screening (Bone Density Screening) 09/22/2034 09/22/2024 Hepatitis C Screening Completed 09/11/2023 HIB Vaccines Aged Out No longer eligi ble based on patient's age to complete this topic HPV Vaccines Aged Out No longer eligi ble based on patient's age to complete this topic Hepatitis B Vaccines Aged Out No long er eligible based on patient's age to complete this topic IPV Vaccines Aged Out No longer eligi ble based on patient's age to complete this topic MMR Vaccines Aged Out No longer eligi ble based on patient's age to complete this topic Meningococcal ACWY Vaccine Aged Out N o longer eligible based on patient's age to complete this topic Meningococcal B Vaccine Aged Out No l onger eligible based on patient's age to complete this topic RSV Immunization Patients Under 20 months Aged Out No longer eligible based on patient's age to complete this topic Varicella Vaccines Aged Out No longer eligible based on patient's age to complete this topic Goals Goal Patient Goal Type Associated Problems [...] Patient is independent and compliant with HEP Medical Devices Implanted Type Area Chief Digital Media Officer Device Identifier Shelf Expiration Date Model / Serial / Lot Joints Hip Joints Hip Right: Hip Joints Knee Joints Knee Right: Knee Procedures Procedure Name Priority Date/Time Associated Diagnosis Comments EXTERNAL XRAY REPORT 04/05/2025 MG MAMMO DIGITAL SCREENING W NASH BILAT Routine 03/18/2025 10:11 AM EDT Encounter for screening mammogram for breast cancer BD BONE DENSITY DXA AXIAL SKELETON Routine 09/22/2024 2:24 PM EST Asymptomatic menopausal state ANNUAL BMP BLOOD TEST Routine 03/09/2024 LIPID PANEL Routine 03/09/2024 HPV Routine 11/06/2023 HEPATITIS C SCREENING Routine 09/11/2023 from Last 3 Months or Most Recently Relevant to Health Maintenance Results * External Xray Report (04/05/2025) Anatomical Region Laterality Modality Radiographic Verna ging us Provider [facility] IMG XR PROCEDURES Final Result * MG Mammo Digital Screening w Nash bilat (03/18/2025 10:11 AM EDT) Anatomical Region Laterality Modality Breast Bilateral Mammography 03/21/2025 4:50 PM EDT Impressions 03/21/2025 4:52 PM EDT No mammographic evidence of malignancy. BREAST DENSITY: B - There are scattered areas of fibroglandular density. BI-RADS CATEGORY: 1 - NEGATIVE RECOMMENDATION: Screening bilateral mammogram is recommended in 1 year. MAMMO LOCATION: [facility], [address] [place] [address], [id number], . -------- FINAL REPORT -------- Dictated By: Karen Barton Dictated Date: 03/21/2025 16:50 ET Assigned Physician: Karen Barton Reviewed and Electronically Signed By: Karen Barton Signed Date: 03/21/2025 16:52 ET Workstation ID: [id number] Transcribed By: Self Edit Transcribed Date: 03/21/2025 16:50 ET Narrative 03/21/2025 4:52 PM EDT EXAM: Screening Mammogram CLINICAL: 64 years old, Female, routine annual exam. COMPARISON: 03/10/2024 TECHNIQUE: Bilateral MLO and CC views were obtained digitally with 3-D mammogram (digital breast tomosynthesis). Computer-aided detection was utilized in evaluation of this exam (CAD). FINDINGS: No new suspicious mass, architectural distortion, or suspicious calcifications. Procedure Note Karen Barton MD - 03/21/2025 EXAM: Screening Mammogram CLINICAL: 64 years old, Female, routine annual exam. COMPARISON: 03/10/2024 TECHNIQUE: Bilateral MLO and CC views were obtained digitally with 3-Dmammogram (digital breast tomosynthesis). Computer-aided detection wasutilized in evaluation of this exam (CAD). FINDINGS: No new suspicious mass, architectural distortion, or suspiciouscalcifications. IMPRESSION: No mammographic evidence of malignancy. BREAST DENSITY: B - There are scattered areas of fibroglandular density. BI-RADS CATEGORY: 1 - NEGATIVE RECOMMENDATION: Screening bilateral mammogram is recommended in 1 year. MAMMO LOCATION: [facility], [address] [place] [address], [id number], . -------- FINAL REPORT -------- Dictated By: Karen Barton Dictated Date: 03/21/2025 16:50 ET Assigned Physician: Karen Barton Reviewed and Electronically Signed By: Karen Barton Signed Date: 03/21/2025 16:52 ET Workstation ID: [id number] Transcribed By: Self Edit Transcribed Date: 03/21/2025 16:50 ET David Mercado MD IMG BI PROCEDURES Final Result * BD Bone Density DXA Axial Skeleton (09/22/2024 2:24 PM EST) Anatomical Region Laterality Modality Wrist, Hip, L-spine Bone Densito metry 09/22/2024 2:26 PM EST Impressions 09/22/2024 2:28 PM EST Impression: This patient is considered to have normal bone density by WHO criteria. [facility] Department of Internal Medicine recommends using National Osteoporosis Foundation (NOF) guidelines in treatment decisions related to osteoporosis. NOF guidelines suggest considering treatment for postmenopausal women and men aged 50 or older presenting with the following: History of hip or vertebral fracture. T-score = -2.5 (DXA) at the femoral neck, total hip, or spine, after appropriate evaluation to exclude secondary causes. Low bone mass (T-score between -1.0 and -2.5 at the femoral neck or spine) AND a 10-year probability of a hip fracture = 3% OR a 10-year probability of a major osteoporosis-related fracture = 20% based on the [place]-adapted WHO algorithm Please note that all treatment decisions require clinical judgment and consideration of individual patient factors, including patient preferences, co-morbidities, previous drug use, risk factors not captured in the FRAX model (e.g., frailty, falls, vitamin D deficiency, increased bone turnover, interval significant decline in bone density) and possible under- or over-estimation of fracture risk by FRAX. Optional alternative screening schedule based on moira Chang., [facility] September 05, 2011 for patients with osteopenia (based on hip BMD T-score) is as follows: * advanced osteopenia (T scores -2.00 to -2.49), BMD testing every year * moderate osteopenia (T scores -1.50 to -1.99), BMD testing every 5 years mild osteopenia or normal BMD (T scores -1.50 and higher), BMD testing every 15 years -------- FINAL REPORT -------- Dictated By: Ina Belcher Dictated Date: 09/22/2024 14:26 ET Assigned Physician: Ina Belcher Reviewed and Electronically Signed By: Ina Belcher Signed Date: 09/22/2024 14:28 ET Workstation ID: [id number] Transcribed By: Self Edit Transcribed Date: 09/22/2024 14:26 ET Narrative 09/22/2024 2:28 PM EST BONE DENSITY (DEXA) Lumbar Spine T-score is 0.6. (SD relative to 20-29 y/o adult) Z-score is 2.3. (SD relative to age matched peers) This is considered normal by WHO criteria. Left Hip T-score is -0.6. Z-score is 0.9. This is considered normal by WHO criteria. There is mild curvature of the lumbar spine. Lateral view of the spine demonstrates vertebral heights to be maintained. Procedure Note Ina Belcher MD - 09/22/2024 BONE DENSITY (DEXA) Lumbar Spine T-score is 0.6. (SD relative to 20-29 y/o adult) Z-score is 2.3. (SD relative to age matched peers) This is considered normal by WHO criteria. Left Hip T-score is -0.6. Z-score is 0.9. This is considered normal by WHO criteria. There is mild curvature of the lumbar spine. Lateral view of the spine demonstrates vertebral heights to bemaintained. IMPRESSION: Impression: This patient is considered to have normal bone density by WHO criteria. [facility] Department of Internal Medicine recommendsusing National Osteoporosis Foundation (NOF) guidelines in treatmentdecisions related to osteoporosis. NOF guidelines suggest consideringtreatment for postmenopausal women and men aged 50 or older presentingwith the following: History of hip or vertebral fracture. T-score = -2.5 (DXA) at the femoral neck, total hip, or spine, afterappropriate evaluation to exclude secondary causes. Low bone mass (T-score between -1.0 and -2.5 at the femoral neck or spine)AND a 10-year probability of a hip fracture = 3% OR a 10-year probabilityof a major osteoporosis-related fracture = 20% based on the [place]-adapted WHOalgorithm Please note that all treatment decisions require clinical judgment andconsideration of individual patient factors, including patientpreferences, co-morbidities, previous drug use, risk factors not capturedin the FRAX model (e.g., frailty, falls, vitamin D deficiency, increasedbone turnover, interval significant decline in bone density) and possibleunder- or over-estimation of fracture risk by FRAX. Optional alternative screening schedule based on moira Chang., [facility]January 2011 for patients with osteopenia (based on hip BMD T-score)is as follows: * advanced osteopenia (T scores -2.00 to -2.49), BMD testing every year * moderate osteopenia (T scores -1.50 to -1.99), BMD testing every 5years mild osteopenia or normal BMD (T scores -1.50 and higher), BMD testingevery 15 years -------- FINAL REPORT -------- Dictated By: Ina Belcher Dictated Date: 09/22/2024 14:26 ET Assigned Physician: Ina Belcher Reviewed and Electronically Signed By: Ina Belcher Signed Date: 09/22/2024 14:28 ET Workstation ID: [id number] Transcribed By: Self Edit Transcribed Date: 09/22/2024 14:26 ET Abdulkadir ACEVEDO IMG DXA PROCEDURES Final Resul t * Annual BMP Blood Test (03/09/2024) [facility] Annual BMP Blood Test Abstracted Historical Provider HEALTH MAINTENANCE Final Result * Lipid panel (03/09/2024) [facility] LDL/HDL Ratio 3 0 - 4 Triglycerides 104 0 - 150 mg/dL Cholesterol 181 0 - 200 mg/dL HDL 61 >=40 mg/dL LDL Cholesterol 100 0 - 100 mg/dL Blood Venous blood specimen / Unknown Historical Provider LAB BLOOD ORDERABLES Liliya l Result * Cervical Cancer Screening: HPV (11/06/2023) [facility] Cervical Cancer Screening: HPV Negative, Abstracted Historical Provider HEALTH MAINTENANCE Final Result * Hepatitis C Screening (09/11/2023) [facility] Hepatitis C Screening Abstracted Historical Provider HEALTH MAINTENANCE Final Result from Last 3 Months or Most Recently Relevant to Health Maintenance Insurance MEDICARE Member Subscriber Plan / Payer (Ef fective 2019-Present) Name:KEREN PICKARDRICIA Relation to Subscriber:Self Name:Cuca Pickard Payer ID:[id number] Group ID:[id number] Type:Not on file Address: [place] [address] [place] [phone] Advance Directives * Full Code - Default (Latest Code Status on File) Date Activated Date Inactivated Comments 09/06/2024 1:36 PM 09/06/2024 4:54 PM This is orde r is used when code status has not been discussed with the patient, or code status is otherwise unknown/unconfirmed To update the patient's code status, place a code status order. Do not modify or discontinue any currently active code status orders. * Full Code - Default Date Activated Date Inactivated Comments 08/23/2024 7:49 AM 08/23/2024 1:03 PM This is order is used when code status has not been discussed with the patient, or code status is otherwise unknown/unconfirmed To update the patient's code status, place a code status order. Do not modify or discontinue any currently active code status orders. Care Teams Filler Shredding Machine Loader Relationship Specialty Start Date End Date David Mercado MD [address] [place] [phone] PCP - General 05/21/23
--- OUTSIDE RECORDS SUMMARY | 2025-04-14 06:59 | XMS_ITS | Encounter Summary ---
Author Organization Address [address] [place] [address] Care Team Providers Care Digestion Operator Name Role Phone David Mercado MD Primary Care Provider [phone] Reason for Visit * Reason Onset Date Comments Medication Problem 03/18/2025 Encounter Details Date Type Department Care Team (Late st Contact Info) Description 03/18/2025 Telephone Internal Medicine - [place] [address] [facility] [address] [place] [phone] David Mercado MD [address] [place] [address] Social History Tobacco Use Types Packs/Day Years [...] as of this encounter Progress Notes * Yumiko Aguero MA - 04/06/2025 3:16 PM EDT Spoke to patient and she stated she is buying over the counter medication, she's all set with meds. * David Mercado MD - 04/05/2025 5:19 PM EDT This is cough medication. Patient need as needed when patient have cough. It is not active currently. * Sangita Wylie MA - 04/02/2025 1:24 PM EDT DEXTROMETHOPHAN Is medication still an active medication ? * Tatiana Simmons - 03/31/2025 2:16 PM EDT If pharmacy request is this med discontinued? DEXTROMETHOPHAN is the name of medication Contact pharmacy with response * Esperanza Alba - 03/30/2025 12:30 PM EDT Completed electronic pa - the medication did on the med list as of 03/27/2025. * Tatiana Simmons - 03/28/2025 12:01 PM EDT Still waiting on medication and prior auth * Katherine Telles - 03/23/2025 11:54 AM EDT Maharaj from [facility] sent PA request over CoverMyMeds portal on 03/18/25: KeyCODE : [id number] [phone] EXT. 210 * Tatiana Simmons - [...] having a hard time with cough Please aakashetiffany documented in this encounter Plan of Treatment Upcoming Encounters Date Type Department Care Team (Late st Contact Info) Description 05/25/2025 9:10 AM EDT Office Visit Gastroenterology - [address] [facility] [address] [facility] [address] [place] [address] Enrique Yeh PA [address] [place] [phone] 07/26/2025 10:00 AM EST Office Visit Internal Medicine - [address] [place] [phone] David Mercado MD [address] [place] [address] 12/27/2025 1:00 PM EDT [facility] [address] [place] [phone] Adonis Ellison MD [address] [facility] [address] [place] [phone] documented as of this encounter Goals Goal [...] on filedocumented in this encounter Care Teams Digestion Operator Relationship Specialty Start Date End Date David Mercado MD [address] [facility] [address] [place] [phone] PCP - General 05/21/23 documented as of this encounter
--- OUTSIDE RECORDS SUMMARY | 2025-04-14 06:59 | XMS_ITS | Patient Health Record ---
Author Organization [facility] Address [address] [place] [address] Care Team Providers Care Flour Distributor Name Role Phone David Mercado Primary Care Provider Kati Díaz Unavailable [phone] Allergies Allergen (clinical drug ingredient) Drug/Non Drug Allergy documented on EMR Reaction Allergy Type Onset Date Status Penicillin mouth swelling Drug Allergy A ctive Reason For Referral No Information Medications Medication SIG (Take, Route, Frequency, Duration) Notes Start Date End Date Status Aspir-81 Not-Taking rOPINIRole HCl 0.25 MG 1 tablet 1 to 3 h ours before bedtime Orally Once a day Active Atorvastatin Calcium 40 MG 1 tablet Orally Once a day Not-Taking Melatonin 10 MG as directed Orally Not-Taking buPROPion HCl 100 MG 1 tablet Orally Twi ce a day Active Celecoxib 200 MG 1 capsule with food Orally Once a day Active Cetirizine HCl 10 MG 1 tablet Orally Onc e a day Active Fluoxetine Active lamoTRIgine 100 MG 1 tablet Orally Once a day Active Magnesium Oxide 400 MG 1 tablet as neede d Orally Once a day Not-Taking Midodrine HCl 5 MG 1 tablet Orally 3 ti mes a day Not-Taking Pantoprazole Sodium 40 MG 1 tablet Orall y Once a day Active risperiDONE 0.5 MG 1 tablet Orally Once a day Active Immunizations Vaccine Route Administration Date Status Comme nts Influenza Unknown 06/15/2024 Administered Social History Tobacco Use: Social History Observation Description Date Details (start date - stop date) Never Smoker NA - NA Tobacco use other than smoking: Question Answer Notes Are you an other tobacco user? No Tobacco Control (Standard) Question Answer Notes Tobacco use: Nonsmoker Additional Findings: Tobacco non-user Current no nsmoker AUDIT-C (Standard) Question Answer Notes Did you have a drink containing alcohol in the p ast year? No Points 0 Interpretation Negative Vital Signs Heart Rate 79 /min 10/25/2024 Blood pressure diastolic 79 mm Hg 03/14/2025 Height 5ft 3in in 03/14/2025 Blood pressure systolic 118 mm Hg 03/14/2025 Weight 160 lbs 03/14/2025 BMI 28.34 kg/m2 03/14/2025 Encounters Encounter Location Date Provider Diagnosis [address] [address] 06/21/2024 Kati Perica Tinea unguium B35.1 ; Pain in right toe(s) M79.674 and Pain in left toe(s) M79.[address] [address] 10/25/2024 Kati Perica Tinea unguium B35.1 ; Pain in right toe(s) M79.674 and Pain in left toe(s) M79.[address] [address] 03/14/2025 Kati Perica Tinea unguium B35.1 ; Pain in right toe(s) M79.674 and Pain in left toe(s) M79.[address] [address] 05/24/2024 Kati Perica [address] [address] 09/21/2024 [facility] [address] 01/20/2025 Kati Perica Assessments Encounter Date Diagnosis (ICD Code) Assessment Notes Treatment Notes Treatment Clinical Notes Section Notes 06/21/2024 Tinea unguium (ICD-10 - B35.1) 06/21/2024 Pain in right toe(s) (ICD-10 - M79.674) 10/25/2024 Tinea unguium (ICD-10 - B35.1) 10/25/2024 Pain in right toe(s) (ICD-10 - M79.674) 03/14/2025 Tinea unguium (ICD-10 - B35.1) 03/14/2025 Pain in right toe(s) (ICD-10 - M79.674) 10/25/2024 Pain in left toe(s) (ICD-10 - M79.675) 06/21/2024 Pain in left toe(s) (ICD-10 - M79.675) 03/14/2025 Pain in left toe(s) (ICD-10 - M79.675) Plan Of Treatment Next Appt Details Provider Name:Kati ramos, 06/13/2025 02:30:00 PM, [address] [place] [address], [place], [address], Insurance Providers Payer Name Payer Address Payer Phone Subscriber Number Group Number Insured Name Patient Relationship to Insured Coverage Start Date Coverage End Date [facility] CCA SCO Claims [address] [place] [facility] [id number] Prisca Cuevas Self - patient is the insured Medical (General) History Medical History History ICD Code Anemia Anxiety Arthritis asthma Back,Hip,and Knee pain Cataracts covid-19 Dementia Depression Diverticulosis Gall bladder problems Keloid/Thick Scar Psychiatric disorder Measles Mumps Chicken pox Joint implants/screws Surgical History Surgery Date(Month/Year) Gall bladder removal 1982 knee replacement 2017 hip replacement 2020 nerve stimulator surgery 01/2024 back sx stimulator 10/12 replanted stimulator in back
--- NOTE | 2025-04-14 07:37 | PFT_ITS ---
Flows: FEV1: 103 % of predicted at 2.37 L FVC: 94 % of predicted at 2.74 L FEV1/FVC: 87 % Bronchodilator response: Absent Volumes: Total lung capacity: 85 % of predicted at 4.16 L Residual volume: 84 % of predicted at 1.48 L Slow vital capacity: 86 % of predicted at 2.67 L Expiratory reserve volume: 30 % of predicted at 0.23 L Diffusion capacity: Mildly decreased Impression: No obstructive or restrictive ventilatory defect. No bronchodilator response. Decreased expiratory reserve volume suggests extrathoracic restriction likely secondary to abdominal obesity. Decreased diffusion capacity suggests emphysema. MTDD
[2025-04-14 08:10] VITALS: PULSE 63; O2SAT 98
== END 2025-04-14 06:58 | disposition home or self-care (01) ==
LOC: HO.RESP 06:57
PROVIDERS: PCP Internal Medicine; Visit Provider Internal Medicine
DX: J45.909 Unspecified asthma, uncomplicated (principal); R06.9 Unspecified abnormalities of breathing; E66.9 Obesity, unspecified
CPT/HCPCS: 94010; 94640; 94727; 94729

== ENCOUNTER → 2025-04-14 07:37 | Outpatient (BNV) | payer OTHER, SELFPAY | PROVIDERS: PCP Internal Medicine; Visit Provider Internal Medicine Pulmonary Disease | DX: J45.909 Unspecified asthma, uncomplicated (principal) | CPT/HCPCS: 94060; 94727; 94729 ==

== ENCOUNTER 2025-06-02 10:57 | Outpatient (AMB) | payer OTHER, SELFPAY ==
--- OUTSIDE RECORDS SUMMARY | 2024-05-24 06:00 | XMS_ITS ---
Author Organization [facility] Address [address] [place] [address] Care Team Providers Care Insurance Consultant Name Role Phone David Mercado Primary Care Provider Kati Díaz [phone] Encounters Encounter Location Date Provider Diagnosis [address] [address] 05/24/2024 Kati Lawson Plan Of Treatment Next Appt Details Provider Name:Kati ramos, 06/13/2025 02:30:00 PM, [address] [place] [address], [address], Progress Notes * Prisca PICKARDDOB: [birth year] (64 yo F)Acc No.[id number]:05/24/2024 Progress Note Patient: Prisca HUERTA Provider: González Lawson DPM :1960 A ge:63 Y S ex:Female Date:05/24/2024 Address:[address] [place], [place] [id number] Pcp:David Mercado Subjective: * Chief Complaints: * * Medical History: Objective: * Vitals: Assessment: Plan: * Treatment: * Images: * The named appointment provid er may or may not be the originator of this progress note, and it is not deemed complete until electronically signed by the appointment provider. Sign off status: Pending * Provider: González Lawson DPM Date: 1 Generated for Roslyn hannah/Marie/Chino on: 01:54 PM EDT
--- OUTSIDE RECORDS SUMMARY | 2024-09-23 06:00 | XMS_ITS ---
Author Organization [facility] Address [address] [place] [address] Care Team Providers Care Buffer Inflated Pad Name Role Phone David Mercado Primary Care Provider Kati Díaz [phone] Encounters Encounter Location Date Provider Diagnosis [address] [address] 09/23/2024 Kati Lawson Plan Of Treatment Next Appt Details Provider Name:Kati ramos, 06/13/2025 02:30:00 PM, [address] [place] [address], [phone], Progress Notes * Prisca PICKARDDOB: [birth year] (64 yo F)Acc No.[id number]:09/23/2024 Progress Note Patient: Prisca HUERTA Provider: González Lawson DPM :1960 A ge:64 Y S ex:Female Date:09/23/2024 Address:[address] [place], [place] [phone] Pcp:David Mercado Subjective: * Chief Complaints: * [...] DPM Date: 0 09/23/2024 Generated for Roslyn hannah/Marie/Chino on: 1 01:54 PM EDT
--- OUTSIDE RECORDS SUMMARY | 2025-01-24 07:30 | XMS_ITS ---
Author Organization [facility] Address [address] [place] [address] Care Team Providers Care Video Game Producer Name Role Phone David Mercado Primary Care Provider Kati Díaz [phone] Encounters Encounter Location Date Provider Diagnosis [address] [address] 01/24/2025 Kati Lawson Plan Of Treatment Next Appt Details Provider Name:Kati ramos, 06/13/2025 02:30:00 PM, [address] [place] [address], [phone], Progress Notes * Prisca PICKARDDOB: [birth year] (64 yo F)Acc No.[id number]:01/24/2025 Progress Note Patient: Prisca HUERTA Provider: González Lawson DPM :1960 A ge:64 Y S ex:Female Date:01/24/2025 Address:[address] [place], [place] [phone] Pcp:David Mercado Subjective: * Chief Complaints: * [...] 0 01/24/2025 Generated for Roslyn hannah/Marie/Chino on: 1 01:54 PM EDT
[2025-06-02 11:15] VITALS: BP 110/60; PULSE 63; O2SAT 98; BMI 36.1
--- NOTE | 2025-06-02 11:15 | A.OFFVIS_ITS ---
Vital Signs 06/02/25 11:15 Height 5 ft 3 in Weight 203 lb 14.841 oz BMI 36.1 BP 110/60 Blood Pressure Location Lt brachial Position Sitting Pulse 63 Pulse Source Pulse Oximeter Pulse Oximetry (%) 98 Oxygen Delivery Method Room Air Intake Visit Reasons: Obstructive sleep apnea Intake Note: pt is here for follow up and had pft and she just wants to get rid of the cough it has been 10 months. Forest Fire Lookout Required: No Banking Services Clerk: Banking Services Clerk offered & declined Allergies Penicillins Allergy (Severe, Verified 06/02/25 11:41) Swelling Medication List - Last Reconciled 06/02/25 by Marilyn Drummond MD albuterol sulfate 90 mcg/actuation (Ventolin HFA) 1 inh inhalation QID fluticasone propionate 110 mcg/actuation 1 puff inhalation Q12H Do you need a note to return to daycare/school/sports/work: No HPI HPI Obstructive sleep apnea: Details: This 64 years old female is here for follow-up after 2 months. Main complaint is ongoing periodic cough, for the last 8-10 months. Her cough is definitely worse if she is closer to somebody who is smoking, or if she is in the outdoor areas of her apartment building. Albuterol HFA does come down her cough. She is using Flovent-110 but only 1 puff twice a day. She can walk around without getting much shortness of breath. Her other problem has been obstructive sleep apnea, which almost resolved when she lost some weight. Now she is fighting with her weight. She claims that she is not having much symptoms of sleep apnea. And even if she does or read diagnosed with FAIZA she would not use CPAP. When she was here last time we did the lap tests . CBC with diff showed eosinophilia of 5.4% Immune globulin level was normal [facility] Medical History Obesity (BMI 30-39.9) FAIZA (obstructive sleep apnea) Cough Allergic asthma Asthma Social History Patient Tobacco Use Status: Former Tobacco user Review of Systems Const All systems reviewed & are unremarkable except as noted in HPI and below Eyes Reports no additional complaints ENT Reports no additional complaints and Reports nasal congestion (ONLY MILD INTERMITTENT NASAL CONGESTION) Card Denies chest pain, Denies syncope, Denies irregular heart rhythm and Denies leg edema Resp Reports as per HPI GI Reports no additional complaints Reports no additional complaints Musc Reports no additional complaints Skin/Breast Reports system reviewed and no additional complaints, except as documented Neuro Reports no additional complaints, Denies confusion, Denies syncope and Denies memory loss (SHE SPENT 3 YEARS IN THE HALF-WAY BECAUSE OF SEVERE DEMENTIA) Psych Reports no additional complaints, Denies confusion and Denies memory loss (SHE SPENT 3 YEARS IN THE HALF-WAY BECAUSE OF SEVERE DEMENTIA) Endo Reports no additional complaints Aller/Immun Reports no additional complaints Physical Exam Vital Signs: Last Vital Signs Pulse 63 06/02/25 11:15 BP 110/60 06/02/25 11:15 Pulse Ox 98 06/02/25 11:15 Oxygen Delivery Method Room Air 06/02/25 11:15 BMI result Body Mass Index 36.1 SHE IS MODERATELY OBESE, SHE DOES HAVE ROUND FACE, WEARS DENTURES. BUT THERE IS NO SIGNIFICANT WALTER DENTAL DEFORMITY . Const General: No confusion Orientation/consciousness: No confusion HEENT Head: Yes normal to inspection General nose exam: No nasal polyps present and No nasal discharge present Face and sinus: Yes sinuses nontender Mouth: oropharynx normal (SLIGHTLY NARROW, MALLAMPATI CLASS 3) Throat: Yes posterior oropharynx normal Eyes General: appearance normal, both eyes and all related structures Neck Neck: Yes normal visual inspection, Yes no lymphadenopathy, Yes trachea midline and Yes no JVD Thyroid: Thyroid normal Chest Chest palpation & inspection: normal inspection of the chest, normal palpation of entire chest wall and no tenderness Resp Effort & Inspection: normal respiratory effort Auscultation: clear to auscultation bilaterally, no crackles, no rhonchi and no wheezes Cardio Palpation: normal PMI Rate: regular rate Rhythm: regular rhythm Heart sounds: no gallops and no murmurs Peripheral pulses: Peripheral pulses 2+ throughout GI Palpation (GI): Soft to palpation, Tenderness to palpation present (GI), No hepatosplenomegaly present and Palpable mass present Auscultation: normal bowel sounds Back/Spine/Pelvis Thoracic/Lumbar Spine: thoracic and lumbar spine normal to inspection Skin General skin exam: no rashes or lesions noted Neuro General: No confusion Cranial nerves: Yes CN's II-XII intact bilaterally Extrem General: Yes normal to inspection, Yes no clubbing, cyanosis or edema and Yes no calf tenderness Psych Appearance: grossly normal and well kempt Speech and movement: Normal speech and movement present Results Reviewed Results Reviewed: Chest x-ray unremarkable Pulmonary function test normal except for mild decrease in diffusion capacity CBC,, eosinophil count 5.4% slightly elevated. Immune globulin level 14, normal Assessment & Plan Assessment & Plan (1) Allergic asthma: Comment: SHE HAS CHRONIC PERIODIC COUGH AND WHEEZING. I THINK SHE HAS CHRONIC ALLERGIC BRONCHIAL ASTHMA, DUE TO NONSPECIFIC ENVIRONMENTAL ALLERGIES , ESPECIALLY TO DUST. MILD EOSINOPHILIA OF 5.4%, Code(s): J45.909 - Unspecified asthma, uncomplicated Category: Medical Plan: EXPLAINED TO THE PATIENT THAT HER COUGH IS PROBABLY DUE TO MILD ALLERGIC BRONCHIAL ASTHMA. SHE MAY USE ALBUTEROL HFA 1 OR 2 PUFFS Q 6 HOURS P.R.N. WHEN SHE HAS A PERSISTENT BOUT OF COUGH ALSO CONTINUE TO USE FLOVENT-1101 INHALATION B.I.D.. (2) Cough: Comment: MILD INTERMITTENT COUGH IS PROBABLY ASTHMA VARIANT. Code(s): R05.9 - Cough, unspecified Category: Medical Plan: UNDER ASTHMA (3) FAIZA (obstructive sleep apnea): Comment: THIS PATIENT DOES HAVE HISTORY OF OBSTRUCTIVE SLEEP APNEA DIAGNOSED, BACK IN 2017. WAS PRESCRIBED CPAP THERAPY BUT SHE REMAINED TOTALLY NON COMPLIANT. SINCE THEN SHE HAS LOST SOME WEIGHT. AT PRESENT SHE DOES NOT PRESENT WITH SIGNIFICANT SYMPTOMS SUGGESTIVE OF SLEEP APNEA. SINCE LAST VISIT SHE HAS GAINED SOME WEIGHT. Code(s): G47.33 - Obstructive sleep apnea (adult) (pediatric) Category: Medical Plan: HAD A DETAILED TALK AND I STRESSED THAT SHE HAS TO LOSE WEIGHT . SHE SAY IS CURRENTLY SHE IS ON A SPECIAL DIET AND HAS EVERY INTENTION TO LOSE SIGNIFICANT WEIGHT. SHE WOULD DEFINITELY NOT LIKE TO HEAR ABOUT USING CPAP. Coding Level of Care Code Est Pt Level 3 (46817) Diagnoses Allergic asthma J45.909 Cough R05.9 FAIZA (obstructive sleep apnea) G47.33
--- OUTSIDE RECORDS SUMMARY | 2025-06-02 13:54 | XMS_ITS | Patient Health Record ---
Author Organization [facility] Address [address] [place] [address] Care Team Providers Care Surgical Corsetier Name Role Phone David Mercado Primary Care Provider Kati Díaz Unavailable [phone] Allergies Allergen (clinical drug ingredient) Drug/Non Drug [...] 03/14/2025 Encounters Encounter Location Date Provider Diagnosis [address] [address] 06/21/2024 Kati Perica Tinea unguium B35.1 ; Pain in right toe(s) M79.674 and Pain in left toe(s) M79.[address] [address] 10/25/2024 Kati Perica Tinea unguium B35.1 ; Pain in right toe(s) M79.674 and Pain in left toe(s) M79.[address] [address] 03/14/2025 Akti Perica Tinea unguium B35.1 ; Pain in right toe(s) M79.674 and Pain in left toe(s) M79.[address] [address] 09/21/2024 Kati Pericrachel [address] [address] 01/20/2025 Kati Lawson Assessments Encounter Date Diagnosis (ICD Code) Assessment [...] Details Provider Name:Kati ramos, 06/13/2025 02:30:00 PM, [address] [facility], [place], [address], Insurance Providers Payer Name Payer Address Payer Phone Subscriber Number Group Number Insured Name Patient Relationship to Insured Coverage Start Date Coverage End Date [facility] [employer] S[employer] Claims [address] [place] [id number] Prisca Cuevas Self - patient is the [...]
--- OUTSIDE RECORDS SUMMARY | 2025-06-02 13:54 | XMS_ITS | Encounter Summary ---
Author Organization [facility] Address [address] [place] [address] Care Team Providers Care Filter Changing Technician Name Role Phone David Mercado MD Primary Care Provider [phone] Reason for Visit * Reason Onset Date Comments Prior Authorization 05/13/2025 Encounter Details Date Type Department Care Team (Late st Contact Info) Description 05/13/2025 Telephone Internal Medicine - [place] [address] [facility] [address] [place] [phone] David Mercado MD 175 [facility] [address] [place] [phone] Social History Tobacco Use Types Packs/Day Years [...] as of this encounter Progress Notes * Chanda Wylie MA - 05/24/2025 10:41 AM EDT CURTIS for Zepbound approved from 02/22/2025-05/24/2026 * Chanda Wylie MA - 05/24/2025 8:53 AM EDT COLLEEN ACEVEDO request with [employer] BY PHONE clinicals notes faxed to DX OBESITY , FAIZA * Gisslele Vigil - 05/23/2025 2:02 PM EDT Pharmacy asked for status of P.A. for Zepbound. Informed her of message below as of 05/17/25 it was pending but unsure if the status has changed. Please fax response to pharmacy if approve or denied. Please advise. * Savannah Escobar MA - 05/17/2025 12:09 PM EDT Prior authorization is pending. Waiting for Payer Response 05/17/2025 10:31 AM Deadline to reply: May 21, * Tatiana Simmons - 05/13/2025 12:09 PM EDT Prior auth needed for Zepbound MARTINEZ [id number] documented in this encounter Plan of Treatment Upcoming Encounters Date Type Department Care Team (Late st Contact Info) Description 07/26/2025 10:00 AM EST Office Visit Internal Medicine - [address] [phone] David Mercado MD [address] [phone] 12/27/2025 1:00 PM EDT Office Visit Nephrology - [facility] [address] [place] [phone] Adonis Ellison MD [address] [place] [address] documented as of this encounter Goals Goal [...] on filedocumented in this encounter Care Teams Filter Changing Technician Relationship Specialty Start Date End Date David Mercado MD [address] [place] [address] [address] [place] [address] PCP - General 05/21/23 documented as of this encounter
--- OUTSIDE RECORDS SUMMARY | 2025-06-02 13:55 | XMS_ITS | Clinical Summary ---
Author Organization [facility] [address] [place] [address] Address [address], [place] Phone Care Team Providers Care Telephone Sex Worker Name Role Phone David Mercado MD Primary Care Provider [phone] Allergies Active Allergy Reactions Criticality Noted Date [...] drink within 30 min 90 each 3 5 09/28/19 26 Active FLUoxetine (PROzac) 10 mg capsule Take 1 capsule (10 mg total) by mouth 1 (one) time each day. Active diclofenac (VOLTAREN) 1 % topical gel Apply 2 g topically 4 (four) times a day if needed (pain). 100 g 3 5 07/31/20 25 Active pantoprazole (PROTONIX) 40 mg EC tablet Take 1 tablet (40 mg total) by mouth 1 (one) time each day. Do not crush, chew, or split. 90 each 1 5 08/06/20 25 Active lamoTRIgine (LaMICtal) 25 mg tablet Take 1 tablet (25 mg total) by mouth 1 (one) time each day. 90 each 1 5 08/20/19 26 Active midodrine (PROAMATINE) 5 mg tablet Take 1 tablet (5 mg total) by mouth 3 (three) times a day if needed (if BP <110/70). 120 tablet 1 5 08/20/19 26 Active albuterol HFA (PROAIR HFA ; PROVENTIL HFA ; VENTOLIN HFA) 90 mcg/actuation inhaler Inhale 2 puffs by mouth every 4 (four) hours if needed for wheezing. 6.7 g 3 5 Active benzonatate (TESSALON) 100 mg capsuleIndicatio ns:Cough, unspecified type Take 1 capsule (100 mg total) by mouth 3 (three) times a day if needed for cough. Do not crush or chew. 42 capsule 1 5 Active fluticasone HFA (FLOVENT HFA) 110 mcg/actuation inhalerIndicatio ns:Moderate persistent asthma, unspecified whether complicated,Bron chitis Inhale 1 puff by mouth 2 (two) times a day. Rinse mouth with water after use to reduce aftertaste and incidence of candidiasis. Do not swallow. 12 g 5 5 03/17/20 26 Active buPROPion (WELLBUTRIN) 100 mg tablet TAKE 1 TABLET BY MOUTH TWICE DAILY 60 tablet 5 Active risperiDONE (RisperDAL) 0.5 mg tablet TAKE 1 TABLET BY MOUTH TWICE DAILY 60 tablet 5 Active atorvastatin (LIPITOR) 80 mg tablet TAKE 1 TABLET BY MOUTH ONCE DAILY 30 tablet 5 Active aspirin 81 mg chewable tablet CHEW ONE TABLET BY MOUTH ONCE DAILY. 30 tablet 5 Active celecoxib (CeleBREX) 200 mg capsule TAKE (1) CAPSULE BY MOUTH DAILY 30 capsule 5 Active tirzepatide, weight loss, (Zepbound) 2.5 mg/0.5 mL injection Inject 0.5 mL (2.5 mg total) under the skin every 7 (seven) days. 2 mL 5 5 11/07/19 26 Active Active Problems Problem Noted Date Diagnosed Date Dementia ([facility] V24, [facility] V28) 09/23/2024 Sciatica 09/23/2024 Asthma 08/23/2024 Sleep apnea 08/23/2024 Dysautonomia ([facility] V24, [facility] V28) 07/02/20 Assessment & Plan (09/29/2024 1:26 PM EST): [...] 12 lead Stage 3a chronic kidney disease ([facility] V24, [facility] V28) 11/05/2023 Anemia 09/14/2023 Vitamin B12 deficiency 09/14/2023 Vitamin D deficiency 09/14/2023 Allergic rhinitis due to pollen 08/26/2023 Anxiety 08/26/2023 Bipolar 1 disorder ([facility] V24, [facility] V28) Depression 08/26/2023 Gastroesophageal reflux disease 08/26/2023 Hypomagnesemia 08/26/2023 Mixed hyperlipidemia 08/26/2023 Assessment & Plan (09/29/2024 1:26 PM EST): Continue current atorvastatin Obesity (BMI 30-39.9) 08/26/2023 Resolved Problems Problem Noted Date Diagnosed Date Resolved Date Paroxysmal atrial fibrillati on ([facility] V24, [facility] V28) 09/23/2024 09/29/2024 HTN (hypertension) 08/23/2024 Hypotension 08/26/2023 09/29/2024 Encounters Date Type Department Care Team Description 05/13/2025 Telephone Internal Medicine [address] [address] David Mercado MD 05/10/2025 10:30 AM EDT Office Visit Internal Medicine [address] [address] David Mercado MD Obesity (BMI 30-39.9) (Primary Dx); Osteoarthritis of left hip, unspecified osteoarthritis type; Mild intermittent asthma, unspecified whether complicated 04/06/2025 2:00 PM EDT Office Visit Orthopedic Surgery [facility] [address] [facility] [address] [place] [phone] Italo Gordon MD Calcific tendinitis of right shoulder (Primary Dx) 03/18/2025 9:41 AM EDT - 03/18/2025 11:59 PM EDT Hospital Encounter Radiology Department - [address] [address] Encounter for screening mammogram for breast cancer Discharge Disposition: Home or Self Care 03/18/2025 Telephone Internal Medicine [facility] [address] [facility] [address] [place] [address] David Mercado MD 03/17/2025 Telephone Internal Medicine [facility] [address] [facility] [address] [place] [address] David Mercado MD 03/16/2025 9:30 AM EDT Office Visit Internal Medicine [address] [place] [address] Justin Pittman NP Bronchitis (Primary Dx); Cough, unspecified type; Mild intermittent asthma, unspecified whether complicated; Bipolar 1 disorder ([facility] V24, [facility] V28) from Last 3 Months Surgical History Surgery Date Site/Laterality Comments KNEE SURGERY 2017 Right PROCEDURE: HISTORICAL KNEE SURGERY HIP ARTHROPLASTY 2019 Right PROCEDURE: HISTORICAL HIP REPLACEMENT OTHER SURGICAL HISTORY 2022 N/A PROCEDURE: REMOVAL OF NOSE/THROAT LESION; COMMENT: repartment of nose CHOLECYSTECTOMY 1982 N/A PROCEDURE: HISTORICAL CHOLECYSTECTOMY SECTION PROCEDURE: [place] DELIVERY ONLY OTHER SURGICAL HISTORY PROCEDURE: [place] LIG/TRNSXJ FLP TUBE ABDL/VAG APPR UNI/BI REVISION / REMOVAL NEUROSTIMULATOR Medical History Medical History Date Comments Hypotension 08/26/2023 DX:Hypotension Hypomagnesemia 08/26/2023 DX:Hypomagnesemi a Mixed hyperlipidemia 08/26/2023 DX:Mixed hy perlipidemia Obesity (BMI 30-39.9) 08/26/2023 DX:Obesity (BMI 30-39.9) Gastroesophageal reflux disease 08/26/2023 DX:Gastroesophageal reflux disease Bipolar 1 disorder ([facility] V24, [facility] V28) 08/26/2023 DX:Bipolar 1 disorder ([facility]) Depression 08/26/2023 DX:Depression Anxiety 08/26/2023 DX:Anxiety Allergic rhinitis due to pollen 08/26/2023 DX:Allergic rhinitis due to pollen TIA (transient ischemic attack) DX:TIA (transient ischemic attack); COMMENT: Reports possible history of TIA when she was at group home Kidney stones DX:Kidney stones Asthma Hypothyroidism Stroke ([facility] V24, [facility] V28) Family History Medical History Relation Name [...] Sign Reading Time Taken Comments Blood Pressure 130/88 05/10/2025 10:20 AM EDT Pulse 99 05/10/2025 10:20 AM EDT Temperature 35.9 C (96.6 F) 05/10/2025 10:20 AM EDT Respiratory Rate 14 12/29/2024 10:39 AM EDT Oxygen Saturation 98% 05/10/2025 10:20 AM EDT Inhaled Oxygen Concentration - - Weight 88.9 kg (196 lb) 05/10/2025 10:20 AM EDT Height 160 cm (5' 3 ) 05/10/2025 10:20 AM EDT Body Mass Index 34.72 05/10/2025 10:20 AM EDT Plan of Treatment Upcoming Encounters Date Type Department Care Team (Late st Contact Info) Description 07/26/2025 10:00 AM EST Office Visit Internal Medicine - [place] [address] [facility] [address] [place] [address] David Mercado MD [address] [facility] [address] [place] [address] 12/27/2025 1:00 PM EDT Office Visit Nephrology - [facility] [address] [facility] [place] [phone] Adonis Ellison MD [address] [place] [address] [place] [phone] Health Maintenance Due Date Last Done Comments Colorectal Cancer Screening: Colonoscopy 1960 Hepatitis A Vaccines (1 of 2 - Risk 2-dose series) 1979 Pneumococcal Vaccine: 50+ Years (1 of 2 - PCV) 1979 Zoster Vaccines (1 of 2) 1979 RSV Immunization Adult Patients (1 - Risk 50-74 years 1-dose series) 2010 HIV Screening 09/12/2023 Medicare Annual Wellness Visit 09/12/2023 Social Influencers of Health Screening 09/12/2023 COVID-19 Vaccine (2 - Moderna risk series) 06/14/2024 05/17/2024 Depression Screening 08/18/2024 Influenza Vaccine (#1) 2025 , 06/18/2018, 05/23/2017, Additional history exists Breast Cancer Screening 03/18/2027 03/18/20 25, 03/10/2024, 03/10/2024 DTaP,Tdap,and Td Vaccines (3 - [...] with HEP Medical Devices Implanted Type Area Board Winder Device Identifier Shelf Expiration Date Model / [...] 09/22/2024 2:24 PM EST Asymptomatic menopausal state LIPID PANEL Routine 03/09/2024 HM HPV Routine 11/06/2023 HEPATITIS C SCREENING Routine [...] is recommended in 1 year. MAMMO LOCATION: [facility], [address] [place] [address], [id number], . -------- FINAL REPORT -------- Dictated By: Karen Barton Dictated Date: 03/21/2025 16:50 ET Assigned Physician: Karen Barton Reviewed and Electronically Signed By: Karen Barton Signed Date: 03/21/2025 16:52 ET Workstation ID: [id number] Transcribed By: Self Edit Transcribed Date: 03/21/2025 [...] architectural distortion, or suspicious calcifications. Procedure Note aKren Barton MD - 03/21/2025 EXAM: Screening Mammogram [...] is recommended in 1 year. MAMMO LOCATION: [facility], [address] [place] [address], [id number], . -------- FINAL REPORT -------- Dictated By: Karen Barton Dictated Date: 03/21/2025 16:50 ET Assigned Physician: Karen Barton Reviewed and Electronically Signed By: Karen Barton Signed Date: 03/21/2025 16:52 ET Workstation ID: [id number] Transcribed By: Self Edit Transcribed Date: 03/21/2025 16:50 ET David Mercado MD IM BI PROCEDURES Final Result * BD Bone Density DXA Axial Skeleton (09/22/2024 2:24 PM EST) Anatomical Region Laterality Modality Wrist, Hip, L-spine Bone Densito metry 09/22/2024 2:26 PM EST Impressions 09/22/2024 2:28 PM EST Impression: This patient is considered to have normal bone density by WHO criteria. [facility] Department of Internal Medicine recommends using National [...] alternative screening schedule based on moira Chang., [facility] September 05, 2011 for patients with osteopenia [...] Signed Date: 09/22/2024 14:28 ET Workstation ID: [id number] Transcribed By: Self Edit Transcribed Date: 09/22/2024 [...] normal bone density by WHO criteria. [facility] Department of Internal Medicine recommendsusing National Osteoporosis [...] alternative screening schedule based on moira Chang., NEJJanuary 2011 for patients with osteopenia (based on [...] Signed Date: 09/22/2024 14:28 ET Workstation ID: [id number] Transcribed By: Self Edit Transcribed Date: 09/22/2024 14:26 ET Abdulkadir ACEVEDO IMG DXA PROCEDURES Final Resul t * Lipid panel (03/09/2024) [facility] LDL/HDL Ratio 3 0 - 4 Triglycerides 104 0 - 150 mg/dL Cholesterol 181 0 - 200 mg/dL HDL 61 >=40 mg/dL LDL Cholesterol 100 0 - 100 mg/dL Blood Venous blood specimen / Unknown Result [facility] Historical Provider LAB BLOOD ORDERABLES Liliya l Result * Cervical Cancer Screening: HPV (11/06/2023) [facility] Cervical Cancer Screening: HPV Negative, Abstracted Result [facility] Historical Provider HEALTH MAINTENANCE Final Result * Hepatitis C Screening (09/11/2023) [facility] Hepatitis C Screening Abstracted Result [facility] Historical Provider HEALTH MAINTENANCE Final Result from Last 3 Months or Most Recently Relevant to Health Maintenance Insurance MEDICARE Member Subscriber Plan / Payer (Ef fective 2019-Present) Name:MELLYKEREN MASTERSRICIA Relation to Subscriber:Self Name:Cuca Cuevas Payer ID:[id number] Group ID:[id number] Type:Not on file Address: [place] [address] [place] [phone] Advance Directives * Full Code - Default [...] currently active code status orders. Care Teams Telephone Sex Worker Relationship Specialty Start Date End Date David Mercado MD [address] [place] [phone] PCP - General 05/21/23
== END 2025-06-02 11:41 | disposition home or self-care (01) ==
LOC: HO.HPS 10:58
PROVIDERS: PCP Internal Medicine; Visit Provider Internal Medicine
DX: J45.909 Unspecified asthma, uncomplicated (principal); R05.9 Cough, unspecified; G47.33 Obstructive sleep apnea (adult) (pediatric)
CPT/HCPCS: 99213

== ENCOUNTER → 2025-06-02 10:57 | Outpatient (BNVA) | payer OTHER, SELFPAY | PROVIDERS: PCP Internal Medicine; Visit Provider Internal Medicine | DX: J45.909 Unspecified asthma, uncomplicated (principal); R05.9 Cough, unspecified; G47.33 Obstructive sleep apnea (adult) (pediatric) | CPT/HCPCS: 99212 ==

== ENCOUNTER 2025-07-06 11:12 | Outpatient (AMB) | payer OTHER, SELFPAY ==
--- OUTSIDE RECORDS SUMMARY | 2024-05-24 05:00 | XMS_ITS ---
Author Organization [facility] Address [address] [place] [address] Care Team Providers Care Cash Posting Specialist Name Role Phone David Mercado Primary Care Provider Kati Díaz [phone] Encounters Encounter Location Date Provider Diagnosis [address] [address] 05/24/2024 Kati Lawson Plan Of Treatment Next Appt Details Provider Name:aKti ramos, 07/11/2025 03:30:00 PM, [address] [place] [address], [phone], Provider Name:Kati ramos, 09/19/2025 09:30:00 AM, [address] [place] [address], [address], Progress Notes * Prisca PICKARDDOB: [birth year] (64 yo F)Acc No.[id number]:05/24/2024 Progress Note Patient: Prisca HUERTA Provider: González Lawson DPM :1960 A ge:63 Y S ex:Female Date:05/24/2024 Address:[address] [place] [address] Pcp:David Mercado Subjective: * Chief Complaints: * * Medical History: Objective: * Vitals: Assessment: Plan: * Treatment: * Images: * The named appointment provid er may or may not be the originator of this progress note, and it is not deemed complete until electronically signed by the appointment provider. Sign off status: Pending * Provider: González Lawson DPM Date: Generated for Roslyn Moss/[place]ino on: 09/05/2024 10:03 PM EST
--- OUTSIDE RECORDS SUMMARY | 2024-09-23 05:00 | XMS_ITS ---
Author Organization [facility] Address [address] [place] [address] Care Team Providers Care Ear Mold Laboratory Technician Name Role Phone David Mercado Primary Care Provider Kati Díaz [phone] Encounters Encounter Location Date Provider Diagnosis [address] [address] 09/23/2024 Kati Lawson Plan Of Treatment Next Appt Details Provider Name:Kati ramos, 07/11/2025 03:30:00 PM, [address] [place] [address], [phone], Provider Name:Kati ramos, 09/19/2025 09:30:00 AM, [address] [place] [address], [phone], Progress Notes * Prisca PICKARDDOB: [birth year] (64 yo F)Acc No.[id number]:09/23/2024 Progress Note Patient: Prisca HUERTA Provider: González Lawson DPM :1960 A ge:64 Y S ex:Female Date:09/23/2024 Address:[address] [place], [place] [phone] Pcp:David Mercado Subjective: * Chief Complaints: * * Medical History: Objective: * Vitals: Assessment: Plan: * Treatment: * Images: * The named appointment provid er may or may not be the originator of this progress note, and it is not deemed complete until electronically signed by the appointment provider. Sign off status: Pending * Provider: González Lawson DPM Date: 0 09/23/2024 Generated for Roslyn Moss/[place] on: 09/05/2024 10:04 PM EST
--- OUTSIDE RECORDS SUMMARY | 2025-01-24 06:30 | XMS_ITS ---
Author Organization [facility] Address [address] [place] [address] Care Team Providers Care Party Plan Dealer Name Role Phone David Mercado Primary Care Provider Kati Díaz [phone] Encounters Encounter Location Date Provider Diagnosis [address] [address] 01/24/2025 Kati Lawson Plan Of Treatment Next Appt Details Provider Name:Kati ramos, 07/11/2025 03:30:00 PM, [address] [place] [address], [phone], Provider Name:Kati ramos, 09/19/2025 09:30:00 AM, [address] [place] [address], [address], Progress Notes * Prisca PICKARDDOB: [birth year] (64 yo F)Acc No.[id number]:01/24/2025 Progress Note Patient: Prisca HUERTA Provider: González Lawson DPM :1960 A ge:64 Y S ex:Female Date:01/24/2025 Address:[address] [place], [place] [id number] Pcp:David Mercado Subjective: * Chief Complaints: * * Medical History: Objective: * Vitals: Assessment: Plan: * Treatment: * Images: * The named appointment provid er may or may not be the originator of this progress note, and it is not deemed complete until electronically signed by the appointment provider. Sign off status: Pending * Provider: González Lawson DPM Date: 0 01/24/2025 Generated for Roslyn Moss/[place] on: 09/05/2024 10:03 PM EST
--- NOTE | 2025-07-06 11:17 | A.OFFVIS_ITS ---
Intake Visit Reasons: 6m Allergies Penicillins Allergy (Severe, Verified 07/06/25 11:21) Swelling Medication List - Last Reconciled 07/06/25 by Janice Raines CNP albuterol sulfate 90 mcg/actuation (Ventolin HFA) 1 inh inhalation QID aspirin 1 tab PO DAILY atorvastatin 80 mg PO DAILY bupropion HCl 100 mg PO BID celecoxib 200 mg PO DAILY fluoxetine 10 mg PO DAILY fluticasone propionate 110 mcg/actuation 1 puff inhalation Q12H lamotrigine mg PO levothyroxine 50 mcg PO DAILY pantoprazole 40 mg PO DAILY risperidone mg PO tirzepatide (weight loss) (Zepbound) mg subcut HPI Comments Details: She was doing okay, living in assisted living facility.?Memory has been stable, and says it may have even improved some, feels comprehension better. She was staying active, going for walks and exercising. Balance was okay, no falls. She had R foot stress fracture and was in walking boot for the last 4 weeks. Tremor was minimal and she mostly noticed it to R hand. It was not bothersome. No functional impairment. No difficulty eating, drinking, or swallowing. Sleep was up and down. Mood was okay, working with psychiatrist and therapist. Blood pressure has been okay. Previously, off balance on 07/08/24 and was using a walker for a month.?She has a history of psychiatric illness including bipolar disorder, depression and apparently was noted to have altered mental status around 2017?and was hospitalized after several falls. She became quite confused and was put into her nursing facility with a diagnosis of dementia. It got to a point where she did not know?family members. She she contracted COVID at some point. It is unclear if some of her medications were changed as?she started to improve and almost came back to normal and was discharged home. Starting around mid-2023, there has again been some confusion and multiple falls. She was also found to have significant orthostatic hypotension which is now controlled with the midodrine. [facility] Medical History (Updated 07/06/25 @ 11:21 by Janice Raines CNP) Bipolar disorder Essential tremor Orthostatic hypotension MCI (mild cognitive impairment) Obesity (BMI 30-39.9) FAIZA (obstructive sleep apnea) Cough Allergic asthma Asthma Social History Patient Tobacco Use Status: Former Tobacco user Review of Systems Const Denies chills, Denies daytime sleepiness, Denies difficulty sleeping, Denies fatigue, Denies fever(s), Denies frequent falls, Denies headache(s), Denies increased appetite, Denies poor appetite, Denies snoring, Denies weakness, Denies weight gain and Denies weight loss Eyes Denies loss of vision ENT Denies vertigo, Denies dizziness, Denies headache(s) and Denies neck pain Card Denies chest pain at rest, Denies chest pain with activity, Denies syncope, Denies leg edema, Denies palpitations, Denies dyspnea and Denies dyspnea on exertion Resp Denies cough, Denies dyspnea, Denies dyspnea on exertion and Denies snoring GI Denies abdominal pain, Denies constipation, Denies heartburn, Denies diarrhea and Denies nausea Denies urinary frequency, Denies urinary incontinence and Denies urinary urgency Musc Denies abnormal gait, Denies back pain, Denies myalgias, Denies arthralgias, Denies neck pain, Denies numbness and Denies tingling Neuro Denies abnormal gait, Denies vertigo, Denies dizziness, Denies syncope, Denies frequent falls, Denies headache(s), Denies lack of coordination, Denies loss of vision, Reports memory loss, Denies numbness, Denies Other visual disturbances, Denies restless legs, Denies seizure-like activity, Denies tingling, Denies paresthesias, Reports tremor(s) and Denies weakness Psych Reports anxiety, Denies depression, Denies auditory hallucinations, Reports memory loss and Denies visual hallucinations Endo Denies fatigue and Denies palpitations Physical Exam Const Other: General Appearance:? normal, in no acute distress. Heart:? S1, S2 normal, no murmurs. Lungs:? clear anteriorly and posteriorly. Musculoskeletal:? normal. Extremities:? R foot walking boot. Psych:? alert, as below. Neuro Other: Abnormal Neurological Findings:?MMSE 24/30. Fine tremors of extended upper extremities. Walking with cane. Mental Status: alert, as below. Cranial Nerves: Pupils are equal, round, and reactive to light. External ocular muscles are intact. Visual beach are full, no ptosis. Face is symmetrical, no facial weakness or droop. Facial sensations are normal. Tongue protrudes in midline. Palate elevates symmetrically. Shoulder shrugging is normal Motor Examination: Normal muscle tone, bulk and strength. No atrophy or fasciculations. No drift of the extended upper extremities. DTR 2+. Plantars are flexor. Sensory Exam: Normal light touch, temperature, pinprick, vibration, and joint- position sensations. Rhomberg sign is absent. Coordination: No ataxia. No titubation. Gait Exam: With cane. Cerebellar Signs: [id number] is okay. Extrapyramidal System: No tremor, rigidity with normal facial expressions. No bradykinesia. No bradyphrenia. Normal arm swing and posture. No propulsion or retropulsion. Speech: Normal. MMSE Level of Consciousness: Alert. Orientation: Knows correct year, month, date, day and season. Knows correct city, county and state. Knows correct location and floor. Registration: Able to register 3 objects. Attention: Serial 7's unable. Recall: Able to recall 2 out of 3 objects. Language: Normal spontaneous speech, fluency, repetition, naming, comprehension, reading, and writing. Total Score: 24/30. Results Reviewed Results Reviewed: 07/29/24 EEG- WNL. Labs normal except low Folate Assessment & Plan Assessment & Plan (1) MCI (mild cognitive impairment): Code(s): G31.84 - Mild cognitive impairment of uncertain or unknown etiology Category: Medical Plan: Discussed treatment options, she was not interested in trying medication at this time. Stay physically and socially active. (2) Essential tremor: Code(s): G25.0 - Essential tremor Category: Medical Plan: Tremor was mild and was not bothersome. No medication was needed at this time. Coding Level of Care Code Est Pt Level 3 (76923) Diagnoses MCI (mild cognitive impairment) G31.84 Essential tremor G25.0
--- OUTSIDE RECORDS SUMMARY | 2025-07-06 22:04 | XMS_ITS | Patient Health Record ---
Author Organization [facility] Address [address] [place] [address] Care Team Providers Care Mail Officer Name Role Phone David Mercado Primary Care Provider Kati Díaz Unavailable [phone] Allergies Allergen (clinical drug ingredient) Drug/Non Drug Allergy documented on EMR Reaction Allergy Type Onset Date Status Penicillin mouth swelling Drug Allergy A ctive Reason For Referral No Information Medications Medication SIG (Take, Route, Frequency, Duration) Notes Start Date End Date Status Cetirizine HCl 10 MG 1 tablet Orally Onc e a day Active Celecoxib 200 MG 1 capsule with food Orally Once a day Active Melatonin 10 MG as directed Orally Not-Taking buPROPion HCl 100 MG 1 tablet Orally Twi ce a day Active Midodrine HCl 5 MG 1 tablet Orally 3 ti mes a day Not-Taking Magnesium Oxide 400 MG 1 tablet as neede d Orally Once a day Not-Taking Atorvastatin Calcium 40 MG 1 tablet Orally Once a day Not-Taking Aspir-81 Active rOPINIRole HCl 0.25 MG 1 tablet 1 to 3 h ours before bedtime Orally Once a day Active risperiDONE 0.5 MG 1 tablet Orally Once a day Active Pantoprazole Sodium 40 MG 1 tablet Orall y Once a day Active lamoTRIgine 100 MG 1 tablet Orally Once a day Active Fluoxetine Active Immunizations Vaccine Route Administration Date Status [...] Rate 79 /min 10/25/2024 Blood pressure diastolic 75 mm Hg 06/13/2025 Height 5ft 3in in 06/13/2025 Blood pressure systolic 120 mm Hg 06/13/2025 Weight 160 lbs 06/13/2025 BMI 28.34 kg/m2 06/13/2025 Encounters Encounter Location Date Provider Diagnosis [address] [address] 10/25/2024 Kati Perica Tinea unguium B35.1 ; Pain in right toe(s) M79.674 and Pain in left toe(s) M79.[address] [address] 03/14/2025 Kati Perica Tinea unguium B35.1 ; Pain in right toe(s) M79.674 and Pain in left toe(s) M79.[address] [address] 06/13/2025 Kati Perica Tinea unguium B35.1 ; Stress fracture, right foot, initial encounter for fracture M84.374A ; Pain in right toe(s) M79.674 ; Pain in left toe(s) M79.675 ; Metatarsalgia, right foot M77.41 and Pain in right foot M79.[address] [address] 09/21/2024 Kati Perica [address] [address] 01/20/2025 Kati Perica Assessments Encounter Date Diagnosis (ICD Code) Assessment Notes Treatment Notes Treatment Clinical Notes Section Notes 10/25/2024 Tinea unguium (ICD-10 - B35.1) 10/25/2024 Pain in right toe(s) (ICD-10 - M79.674) 03/14/2025 Tinea unguium (ICD-10 - B35.1) 06/13/2025 Stress fracture, right foot, initial encounter for fracture (ICD-10 - M84.374A) 06/13/2025 Tinea unguium (ICD-10 - B35.1) 06/13/2025 Pain in right toe(s) (ICD-10 - M79.674) 03/14/2025 Pain in right toe(s) (ICD-10 - M79.674) 10/25/2024 Pain in left toe(s) (ICD-10 - M79.675) 03/14/2025 Pain in left toe(s) (ICD-10 - M79.675) 06/13/2025 Pain in left toe(s) (ICD-10 - M79.675) 06/13/2025 Metatarsalgia, right foot (ICD-10 - M77.41) 06/13/2025 Pain in right foot (ICD-10 - M79.671) Plan Of Treatment Pending Test Test Name Order Date X ray : Foot, right 3V 06/13/2025 Next Appt Details Provider Name:Kati ramos, 07/11/2025 03:30:00 PM, [address] [place] [address], [phone], Provider Name:Kati ramos, 09/19/2025 09:30:00 AM, [address] [place] [address], [phone], Insurance Providers Payer Name Payer Address Payer Phone Subscriber Number Group Number Insured Name Patient Relationship to Insured Coverage Start Date Coverage End Date [facility] [employer] Claims [address] [place] [id number] Prisca Cuevas Self - patient is the [...]
--- OUTSIDE RECORDS SUMMARY | 2025-07-06 22:04 | XMS_ITS | Clinical Summary ---
Author Organization [facility] [address] [place] [address] [address] [place], [place] Phone Care Team Providers Care [facility] Melt Specialist Name Role Phone David Mercado MD Primary Care Provider [phone] Allergies Active Allergy Reactions Criticality Noted Date [...] MOUTH TWICE DAILY 60 tablet 5 Active tirzepatide, weight loss, (Zepbound) 2.5 mg/0.5 mL injection Inject 0.5 mL (2.5 mg total) under the skin every 7 (seven) days. 2 mL 5 5 11/07/19 26 Active atorvastatin (LIPITOR) 80 mg tablet TAKE 1 TABLET BY MOUTH ONCE DAILY 30 tablet 5 Active aspirin 81 mg chewable tablet CHEW ONE TABLET BY MOUTH ONCE DAILY. 30 tablet 5 Active celecoxib (CeleBREX) 200 mg capsule TAKE (1) CAPSULE BY MOUTH DAILY 30 capsule 5 Active Active Problems Problem Noted Date Diagnosed Date Dementia ([facility] V24, [facility] V28) 09/23/2024 Sciatica 09/23/2024 Asthma 08/23/2024 Sleep apnea 08/23/2024 Dysautonomia ([facility] V24, [facility] V28) 07/02/20 Assessment & Plan (09/29/2024 1:26 [...] 12 lead Stage 3a chronic kidney disease ([facility] V24, CM S/[facility] V28) 11/05/2023 Anemia 09/14/2023 Vitamin B12 deficiency 09/14/2023 Vitamin D deficiency 09/14/2023 Allergic rhinitis due to pollen 08/26/2023 Anxiety 08/26/2023 Bipolar 1 disorder ([facility]/HCC V24, [facility] V28) Depression 08/26/2023 Gastroesophageal reflux disease 08/26/2023 Hypomagnesemia 08/26/2023 Mixed hyperlipidemia 08/26/2023 Assessment & Plan (09/29/2024 1:26 PM EST): Continue current atorvastatin Obesity (BMI 30-39.9) 08/26/2023 Resolved Problems Problem Noted Date Diagnosed Date Resolved Date Paroxysmal atrial fibrillati on ([facility] V24, [facility] V28) 09/23/2024 09/29/2024 HTN (hypertension) 08/23/2024 Hypotension 08/26/2023 09/29/2024 Encounters Date Type Department Care Team Description 06/09/2025 2:30 PM EDT Office Visit Internal Medicine [address] [phone] Bryce Collazo MD Viral illness (Primary Dx); Nausea 06/06/2025 Telephone Internal Medicine - [address] [place] [phone] David Mercado MD 05/13/2025 Telephone Internal Medicine - [place] [address] [facility] [address] [place] [phone] David Mercado MD 05/10/2025 10:30 AM EDT Office Visit Internal Medicine [facility] [address] [facility] [address] [place] [phone] David Mercado MD Obesity (BMI 30-39.9) (Primary Dx); Osteoarthritis of left hip, unspecified osteoarthritis type; Mild intermittent asthma, unspecified whether complicated 04/06/2025 2:00 PM EDT Office Visit Orthopedic Surgery [address] [place] [address] Italo Gordon MD Calcific tendinitis of right shoulder (Primary Dx) from Last 3 Months Surgical History Surgery Date Site/Laterality Comments KNEE SURGERY 2017 Right PROCEDURE: HISTORICAL KNEE SURGERY HIP ARTHROPLASTY 2019 Right PROCEDURE: HISTORICAL HIP REPLACEMENT OTHER SURGICAL HISTORY 2022 N/A PROCEDURE: REMOVAL OF NOSE/THROAT LESION; COMMENT: repartment of nose CHOLECYSTECTOMY 1982 N/A PROCEDURE: HISTORICAL CHOLECYSTECTOMY SECTION PROCEDURE: [facility] DELIVERY ONLY OTHER SURGICAL HISTORY PROCEDURE: [facility] LIG/TRNSXJ FLP TUBE ABDL/VAG APPR UNI/BI REVISION / REMOVAL NEUROSTIMULATOR Medical History Medical History Date Comments Hypotension 08/26/2023 DX:Hypotension Hypomagnesemia 08/26/2023 DX:Hypomagnesemi a Mixed hyperlipidemia 08/26/2023 DX:Mixed hy perlipidemia Obesity (BMI 30-39.9) 08/26/2023 DX:Obesity (BMI 30-39.9) Gastroesophageal reflux disease 08/26/2023 DX:Gastroesophageal reflux disease Bipolar 1 disorder ([facility] V24, [facility] V28) 08/26/2023 DX:Bipolar 1 disorder ([facility]) Depression 08/26/2023 DX:Depression Anxiety 08/26/2023 DX:Anxiety Allergic rhinitis due to pollen 08/26/2023 DX:Allergic rhinitis due to pollen TIA (transient ischemic attack) DX:TIA (transient ischemic attack); COMMENT: Reports possible history of TIA when she was at residential Kidney stones DX:Kidney stones Asthma Hypothyroidism Stroke ([facility] V24, [facility] V28) Family History Medical History Relation Name Comments Other: retinal problem Brother COPD Father Heart attack Mother Other: heart dis Mother Breast cancer Paternal Grandmother dx'd e rajeev 50s Glaucoma Sister Relation Name Status Comments Brother Father Maternal Grandfather Maternal Grandmother Mother Paternal Grandfather Paternal Grandmother Sister Social History Tobacco Use Types Packs/Day Years Used Date Smoking Tobacco: Former Cigarettes 3 Q uit: 08/18/1994 Smokeless Tobacco: Never Tobacco [...] Sign Reading Time Taken Comments Blood Pressure 139/82 06/09/2025 2:22 PM EDT Pulse 72 06/09/2025 2:22 PM EDT Temperature 36.9 C (98.5 F) 06/09/2025 2:22 PM EDT Respiratory Rate 14 12/29/2024 10:39 AM EDT Oxygen Saturation 98% 06/09/2025 2:22 PM EDT Inhaled Oxygen Concentration - - Weight 88.3 kg (194 lb 9.6 oz) 06/09/2025 2:22 P M EDT Height 160 cm (5' 3 ) 06/09/2025 2:22 PM EDT Body Mass Index 34.47 06/09/2025 2:22 PM EDT Plan of Treatment Upcoming Encounters Date Type Department Care Team (Late st Contact Info) Description 07/26/2025 10:00 AM EST Office Visit Internal Medicine - [address] [place] [phone] David Mercado MD [address] [place] [phone] 12/27/2025 1:00 PM EDT Office Visit [place]rology - [place] [address] [place], [place] [phone] Adonis Ellison MD [address] [place] [address] [place] [phone] Health Maintenance Due Date Last Done Comments [...] with HEP Medical Devices Implanted Type Area Continuous Dryout Operator Helper Device Identifier Shelf Expiration Date Model / [...] PANEL Routine 03/09/2024 HM HPV Routine 11/06/2023 HM HEPATITIS C SCREENING Routine 09/11/2023 from Last [...] is recommended in 1 year. MAMMO LOCATION: [facility], [address] [place] [address], [id number], . -------- FINAL REPORT -------- Dictated By: Karen Barton Dictated Date: 03/21/2025 16:50 ET Assigned Physician: Karen Barton Reviewed and Electronically Signed By: Karen Barton Signed Date: 03/21/2025 16:52 ET Workstation ID: [id number] Transcribed By: Self Edit Transcribed Date: 03/21/2025 [...] is recommended in 1 year. MAMMO LOCATION: [facility], [address] [place] [address], [id number], . -------- FINAL REPORT -------- Dictated By: Karen Barton Dictated Date: 03/21/2025 16:50 ET Assigned Physician: Karen Barton Reviewed and Electronically Signed By: Karen Barton Signed Date: 03/21/2025 16:52 ET Workstation ID: [id number] Transcribed By: Self Edit Transcribed Date: 03/21/2025 16:50 ET David Mercado MD IMG BI PROCEDURES Final Result * BD Bone Density DXA Axial Skeleton (09/22/2024 2:24 PM EST) Anatomical Region Laterality Modality Wrist, Hip, L-spine Bone Densito metry 09/22/2024 2:26 PM EST Impressions 09/22/2024 2:28 PM EST Impression: This patient is considered to have normal bone density by WHO criteria. The [facility] Department of Internal Medicine recommends using National [...] alternative screening schedule based on moira Chang., [facility] September 05, 2011 for patients with [...] Signed Date: 09/22/2024 14:28 ET Workstation ID: [id number] Transcribed By: Self Edit Transcribed Date: 09/22/2024 [...] normal bone density by WHO criteria. The [facility] Department of Internal Medicine recommendsusing National Osteoporosis [...] alternative screening schedule based on moira Chang., [facility] for patients with osteopenia (based on [...] Signed Date: 09/22/2024 14:28 ET Workstation ID: [id number] Transcribed By: Self Edit Transcribed Date: 09/22/2024 14:26 ET Abdulkadir ACEVEDO IMG DXA PROCEDURES Final Resul t * Lipid panel (03/09/2024) LDL/HDL Ratio 3 0 - 4 Triglycerides 104 0 - 150 mg/dL Cholesterol 181 0 - 200 mg/dL HDL 61 >=40 mg/dL LDL Cholesterol 100 0 - 100 mg/dL Blood Venous blood specimen / Unknown Historical Provider LAB BLOOD ORDERABLES Liliya l Result * Cervical Cancer Screening: HPV (11/06/2023) [facility] Cervical Cancer Screening: HPV Negative, Abstracted us Historical Provider HEALTH MAINTENANCE Final Result * Hepatitis C Screening (09/11/2023) [facility] Hepatitis C Screening Abstracted us Historical Provider HEALTH MAINTENANCE Final Result from Last 3 Months or Most Recently Relevant to Health Maintenance Insurance [facility] MEDICARE Member Subscriber Plan / Payer (Ef fective 2019-Present) Name:[employer] P[employer] Relation to Subscriber:Self Name:Ccua Pickard Payer ID:[id number] Group ID:[id number] Type:Not on file Address: [place] [address] [address] [phone] Advance Directives * Full Code - Default [...] currently active code status orders. Care Teams [facility]elt Specialist Relationship Specialty Start Date End Date David Mercado MD [address] [facility] [address] [place] [phone] PCP - General 05/21/23
== END 2025-07-06 11:36 | disposition home or self-care (01) ==
LOC: HO.HSM 11:12
PROVIDERS: PCP Student in an Organized Health Care Education/Training Program; Referring Provider Student in an Organized Health Care Education/Training Program; Visit Provider Registered Nurse
DX: G31.84 Mild cognitive impairment of uncertain or unknown etiology (principal); G25.0 Essential tremor
CPT/HCPCS: 99213

== ENCOUNTER → 2025-07-06 11:12 | Outpatient (BNVA) | payer OTHER, SELFPAY | PROVIDERS: PCP Student in an Organized Health Care Education/Training Program; Referring Provider Student in an Organized Health Care Education/Training Program; Visit Provider Registered Nurse | DX: G25.0 Essential tremor (principal); G31.84 Mild cognitive impairment of uncertain or unknown etiology | CPT/HCPCS: 99212 ==